=== PATIENT | female | born 1955 | race Caucasian/White ===

== ENCOUNTER → 2018-04-08 08:27 | Outpatient (CLI) | payer OTHER, SELFPAY ==
[2018-04-08 10:36] LABS: Erythrocyte Sedimentation Rate 0 mm/hr (0-30)
[2018-04-08 18:02] LABS: Uric Acid 5.9 mg/dL (2.6-7.2)
[2018-04-08 18:02] LABS: Magnesium 1.5 mg/dL (1.4-2.2)
[2018-04-09 13:49] LABS: Vitamin D 25 Hydroxy 34.9 ng/mL (30.0-100.0)
[2018-04-09 13:51] LABS: Vitamin B12 312 pg/mL (232-1245)
[2018-04-09 13:52] LABS: RA Latex Turbid. 11.8 IU/mL (0.0-13.9)
[2018-04-09 17:25] LABS: Antinuclear Antibodies, IFA Negative (.)
== END ==
PROVIDERS: Visit Provider Physician Assistant
DX: M25.50 Pain in unspecified joint (principal); R53.83 Other fatigue; Z13.220 Encounter for screening for lipoid disorders
CPT/HCPCS: 82607; 82652; 83735; 84550; 85651; 86038; 86431

== ENCOUNTER → 2018-05-12 08:31 | Outpatient (CLI) | payer OTHER, SELFPAY ==
--- NOTE | 2018-05-12 08:33 | CA_ITS ---
PROCEDURE: 2-D M-mode and color Doppler study INDICATIONS FOR THE TEST: Chest pain COPD Heart Murmur+ Tobacco Smoking+ Palpitations Fatigue+ Syncope Edema+ Hypertension+Diabetes Mellitus Rheumatic Fever SOB MONTOYA+Obesity+Hyperlipidemia Family History HD+ Additional History Pulmonary HTN, Hx of AFib, Hx of ablation and cardioversion, dizziness PATIENT INFORMATION HEIGHT: 65 WEIGHT: 252 GENDER: Female B/P: 137/87 2-D/M-MODE INTERPRETATION: 2-D MEASUREMENTS OBSERVED VALUES IN CMS Right Ventricular Dimension (RVDd) 2.6 Interventricular Septum (Thickness)(IVsd) 1.0 Left Ventricular Internal Dimensions(LVIDd) 4.3 Left Ventricular Posterior Wall (Thickness)(LVPWd) 1.0 Aortic Root 2.2 Aortic Cusp Separation 2.0 Left Atrial Dimensions (LAD) 4.0 2D 1. Left atrium is mildly enlarged, left ventricle is normal size, there is no concentric left ventricular hypertrophy, visually estimated ejection fraction 55% with no obvious regional wall motion abnormality. 2. The right atrium and right ventricle are normal size and contractility. 3. The aortic valve is minimally thickened and fibrosed. 4. The mitral and tricuspid valve leaflets are minimally thickened. 5. The pulmonic valve is poorly visualized. 6. No significant pericardial effusion noted. DOPPLER INTERROGATION: Doppler interrogation of the aortic, mitral and tricuspid valvular presence of moderate mitral and mild tricuspid regurgitation, calculated right ventricular systolic pressure is 44 mmHg consistent with moderate pulmonary hypertension. CONCLUSION: 1. Mildly enlarged left atrium, normal left ventricular size, visually 55% with no obvious regional wall motion abnormality, diastolic parameters are inconclusive. 2. Moderate mitral and mild tricuspid regurgitation, calculated right ventricular systolic pressure is 44 mmHg consistent with moderate pulmonary hypertension. 3. No significant pericardial effusion noted.
== END ==
PROVIDERS: Family Provider Family Medicine; PCP Family Medicine; Visit Provider Internal Medicine
DX: R06.09 Other forms of dyspnea (principal); I34.0 Nonrheumatic mitral (valve) insufficiency; I48.91 Unspecified atrial fibrillation; I27.20 Pulmonary hypertension, unspecified; I11.9 Hypertensive heart disease without heart failure; I07.1 Rheumatic tricuspid insufficiency; E03.8 Other specified hypothyroidism; F17.200 Nicotine dependence, unspecified, uncomplicated
CPT/HCPCS: 93306

== ENCOUNTER → 2018-08-06 08:14 | Outpatient (CLI) | payer OTHER, SELFPAY ==
--- NOTE | 2018-08-06 08:16 | MM_ITS ---
MM Dig screening mamm BI w/CAD ORDERING PHYSICIAN : rBandon Jimenez MD PATIENT AGE: 62 years GENDER: Female COMPARISON: June 2017, May 2016, January INDICATION: ITS.REASON: SCREENING no hormones no new complaints. Previous stereotactic biopsy left breast. Noncontributory family history. TECHNIQUE: Standard CC and MLO images were obtained. R2 CAD reviewed. FINDINGS: Heterogeneous breast. Prominent asymmetry. RIGHT BREAST: No significant new findings. Asymmetric Heterogeneous pattern appears stable on right LEFT BREAST:No significant new findings Minimal focal areas of density/nodularity scattered throughout the left breast appear stable compared back to 2012 and 2009. There are also scattered overall benign-appearing calcifications throughout the left breast which have not changed significantly since last year's study. There is been a previous stereotactic biopsy of some of the calcifications at the inferior central left breast as well with metallic clip marker at the site IMPRESSION: No significant interval change. Stable asymmetry . stable scattered densities & benign appearing calcifications throughout the Left Breast with no significant vs prior studies. Bilateral follow-up in one year recommended and should be encouraged BI-RADS Category: 2 Benign Finding(s) RECOMMENDED FOLLOW-UP: 1YR 1 YEAR FOLLOW-UP (A letter has been sent to the patient regarding results of the study.)
== END ==
PROVIDERS: Family Provider Family Medicine; PCP Family Medicine; Visit Provider Family Medicine
DX: Z12.31 Encounter for screening mammogram for malignant neoplasm of breast (principal)
CPT/HCPCS: 77067

== ENCOUNTER 2019-01-01 11:38 | Observation (INO) ==
[2019-01-01 12:09] LABS: Basophils % 0.4 % (0.1-2.0); Eosinophils # 0.1 K/mm3 (0.0-0.4); Eosinophils % 0.8 % (0.1-12.0); Hematocrit 43.8 % (37.0-47.0); Hemoglobin 14.6 g/dL (12.2-16.2); Lymphocytes # 2.3 K/mm3 (0.7-4.5); Lymphocytes % 24.1 % (10-50); Mean Corpuscular HGB Conc 33.4 g/dL (31.8-35.4); Mean Corpuscular Hemoglobin 31.1 pg (27.0-31.2); Mean Corpuscular Volume 93.2 fl (81-99); Mean Platelet Volume 7.7 fl (7.4-10.4); Monocytes # 0.6 K/mm3 (0.1-1.0); Monocytes % 6.5 % (1.7-9.3); Neutrophils # 6.4 K/mm3 (1.8-7.8); Neutrophils % 68.1 % (37.0-80.0); Platelet Count 295 K/mm3 (142-424); Red Blood Count 4.69 M/mm3 (4.20-5.40); Red Cell Distribution Width 13.6 % (11.5-17.5); White Blood Count 9.4 K/mm3 (4.8-10.8)
--- NOTE | 2019-01-01 12:12 | Emergency Department Note ---
ED Disposition Clinical Impression: Pre-syncope, Paroxysmal A-fib, Anticoagulant long-term use, Tobacco use disorder, Caffeine dependence Disposition: Still a Patient Condition on Discharge: Fair Referrals: Brandon Jimenez MD [Primary Care Provider] - - Critical Care Critical Care Time: No Attestation: On 01/01/19, the high probability of a clinically significant, sudden or life threatening deterioration of the following system(s) required my full and direct attention, intervention and personal management. The time I documented below is in addition to time spent performing reported procedures but includes the following listed in this critical care notation. Medical Decision Making - Medical Records Medical records reviewed: Yes: I reviewed the patient's medical records. - Dileep Inquiry Pt receiving controlled substance: No Dileep was queried for this patient: No Vital Signs: 01/01/19 11:42 Temperature 98.3 F Temperature Source Oral Pulse Rate [Right Radial] 100 H Respiratory Rate 18 Blood Pressure [Right Arm] 149/65 H Blood Pressure Mean [Right Arm] 93 Blood Pressure Source [Right Arm] Automatic Cuff Blood Pressure Position [Right Arm] Sitting 02 Sat by Pulse Oximetry 95 Oxygen Delivery Method Room Air Orders (Tests/Meds): ED MEDICATIONS Generic Name Dose Route Start Last Admin Trade Name Freq PRN Reason Stop Dose Admin Sodium Chloride 10 ml 01/01/19 11:55 Saline Flush 10ml Syringe IV 01/31/19 11:54 NEEDED PRN Maintain IV Site ORDERS Category Date Time Status CT head/brain wo con Stat Cat Scan 01/01/19 12:07 Ordered Chest XR 2 view (NOT portable) [XR chest 2V] Stat Exams 01/01/19 11:55 Ordered Basic Metabolic Panel Stat Lab 01/01/19 11:50 Received Complete Blood Count Auto Diff Stat Lab 01/01/19 11:50 Received Free T4 (Free Thyroxine) Stat Lab 01/01/19 11:50 Received Liver Panel Stat Lab 01/01/19 12:07 Ordered Magnesium Stat Lab 01/01/19 12:07 Ordered PT/PTT Stat Lab 01/01/19 12:07 Ordered TSH [Thyroid Stimulating Hormone] Stat Lab 01/01/19 11:50 Received Troponin I Stat Lab 01/01/19 11:50 Received - Radiology Data #1 Image(s): Chest Image Reviewed: Yes I reviewed the patient's radiology image Preliminary Findings: Normal/NAD IMPRESSION: Borderline cardiomegaly otherwise negative - CT Data CT Scan: Head Time Received: 12:[address] Reviewed: Yes: I have viewed the radiologist's interpretation Preliminary Findings: Normal/NAD Findings Narrative: IMPRESSION: Negative CT head without contrast. No acute finding - ECG Data Tracing #1 Sinus tachycardia 101/min no acute findings. ECG initial impression date: 01/01/19 ECG initial impression time: 11:50 Medical Decision Narrative: Patient gradually started feeling better with no additional symptoms but not back to her baseline. I discussed with her admission for observation she was agreeable. I called Dr. Escalante is on-call for Dr. Jimenez. General Adult HPI - General Chief complaint: Dizziness Stated complaint: palpatations Time Seen by Provider: 01/01/19 12:00 Mode of Arrival: Ambulatory Limitations: No Limitations Description of Symptoms (Recalled from ER Triage Doc. by RN): pt reports that approx 1100 today when she was getting out of the shower she began to feeling like her heart was beating very fast, states she felt dizzy states she felt like her L leg was "buckling" under her, pt reports she felt SOA at that time. Pt report since then she has just been feeling shaky and weak, pt reports her heart still feels like it is beating fast. Pt denies chest pain - History of Present Illness HPI narrative: 63 years old white female with smoker and coffee drinker with past medical history of hypertension paroxysmal atrial fibrillations and mitral valve prolapse on this alert to for anticoagulation. She did have 2 ablations 1 3 years ago and the last one was [address] Randall in [facility]. Today she woke up had 2 cups of coffee at 8 AM, took her morning medications Toprol 100 XL and Lopressor 25 mg and proceeded to have a shower that is when she had a sudden onset palpitations, shortness of breath, dizziness, weakness and felt like her left leg was giving away. The palpitation is regular and has improved but she continues to feel dizzy and weak. She denies recreational drug use. Onset (ago): hour(s) (Started at 11 AM this morning.) Location: head, lower extremity Radiation: non-radiation Consistency: constant Relieving factors: none Exacerbating factors: none Associated symptoms: malaise, shortness of breath, weakness - Related Data Home Medications Medication Instructions Recorded Confirmed levothyroxine 25 mcg tablet 100 mcg PO DAILY tab 04/27/18 11/01/18 losartan 50 mg tablet 50 mg PO DAILY tab 04/27/18 11/01/18 omeprazole 20 mg capsule,delayed 20 mg PO DAILY cap 04/27/18 11/01/18 release rivaroxaban 20 mg tablet 20 mg PO QPM 04/27/18 11/01/18 ropinirole 2 mg tablet 2 mg PO TID 04/27/18 11/01/18 trazodone 50 mg tablet 50 mg PO DAILY tab 04/27/18 11/01/18 duloxetine 20 mg capsule,delayed 60 mg PO DAILY cap 04/28/18 11/01/18 release Spironolactone [Aldactone 50mg Tab] 50 mg PO DAILY 09/29/18 11/01/18 metoprolol tartrate 100 mg tablet 100 mg PO BID tab 10/27/18 11/01/18 Metoprolol Tartrate [Lopressor 50 mg PO BID 01/01/19 01/01/19 25mg tablet] Potassium Chloride [Klor-Con 10mEq 10 meq PO BID 01/01/19 01/01/19 tab] Previous Rx's Medication Instructions Recorded hydrochlorothiazide 25 mg tablet 25 mg PO QAM #30 tab 11/08/18 Allergies Allergy/AdvReac Type Severity Reaction Status Date / Time No Known Allergies Allergy Verified 11/01/18 09:42 [facility] History - Hepatitis A Screen Drug use history?: No High risk sexual behaviors?: No History of sexually transmitted infection?: No Currently employed?: No Childcare worker?: No Do you have indoor plumbing?: Yes Do you have electricity?: Yes Attestation statement:: This patient has been screened for Hepatitis A risk factors. I have reviewed the patient's past medical history: Yes Medical History: Reports:: Atrial Fibrillation, Depression, Gastroesophageal Reflux Disease(GERD), Heart Murmur, Hypertension, Lung Disease Denies:: Diabetes Mellitus Type 1, Diabetes Mellitus Type 2 (pre diabetes), Internal Pacemaker Other Medical History: Reports: Hypothyroidism Laterality Cases: Left: Breast Biopsy, Bilateral: Tonsillectomy Other Surgeries: Yes: Cardiac Catheterization, Other. No: Pacemaker Comment: cardiac ablation - Social History Smoking Status: Current every day smoker # Packs/Day (cigarettes): 1 #Yrs smoked (if former smoker): 40 Alcohol Intake: current Alcohol Intake Frequency:: holidays/special occasions only Substance Use Type: denies use Occupational Status: employed Housing: house Household Members: none - Psychiatric History Expresses thoughts of harming self/others: None Suicide Plan Description: No Plan Pschychiatric History:: Reports:: Depression Family Hx:: Coronary Artery Disease, Hypertension, Heart Attack ROS Obtained: Yes All systems reviewed & no additional complaints Physical Exam - General General appearance: alert, in no apparent distress - Head Head exam: atraumatic, normocephalic, normal inspection - Eye Eye exam: Present: normal appearance, PERRL, EOMI. Absent: scleral icterus, nystagmus - ENT ENT exam: Present: normal exam, normal oropharynx, mucous membranes moist, TM's normal bilaterally, normal external ear exam - Neck Neck exam: Present: normal inspection, full ROM, trachea midline. Absent: meningismus, lymphadenopathy - Chest Chest inspection: Present: normal inspection, symmetric chest wall rise. Absent: tenderness - Respiratory Respiratory exam: Present: normal lung sounds bilaterally. Absent: respiratory distress, wheezes - Cardiovascular Cardiovascular exam: Present: regular rate, normal rhythm, normal heart sounds. Absent: JVD - Abdominal Exam Abdominal exam: Present: soft, normal bowel sounds. Absent: distention, tenderness, guarding, rebound, rigidity - Extremities Exam Extremities exam: Present: normal inspection, full ROM, normal capillary refill. Absent: calf tenderness - Back Exam Back exam: Present: normal inspection. Absent: tenderness - Neurological Exam Neurological exam: Present: alert, oriented X3, CN II-XII intact, motor sensory deficit, reflexes normal - Psychiatric Psychiatric exam: Present: normal affect, normal mood - Skin Skin exam: Present: warm, dry, intact, normal color - Lymphatic Lymphatic Findings: no adenopathy
[2019-01-01 12:27] LABS: Activated Partial Thrombo Time 33.2 seconds (23.6-34.0); Anion Gap 11.1 mEq/L (5-15); Blood Urea Nitrogen 17 mg/dL (7-18); Calcium 8.9 mg/dL (8.5-10.1); Carbon Dioxide 30 mmol/L (21.0-32.0); Chloride 103 mmol/L (98-107); Free T4 (Free Thyroxine) 1.34 ng/dl (0.76-1.46); Glucose 98 mg/dL (74-106); INR 1.11 (0.9-1.1); Potassium 4.1 mmoL/L (3.5-5.1); Prothrombin Time 11.4 seconds (9.4-11.8); Sodium 140 mmol/L (136-145); Thyroid Stimulating Hormone 1.38 uIU/ml (0.358-3.740)
[2019-01-01 12:28] LABS: Albumin Level 3.4 gm/dL (3.4-5.0); Bilirubin,Direct 0.1 mg/dL (0.0-0.2); Bilirubin,Indirect 0.3 mg/dL (0.0-0.9); Bilirubin,Total 0.4 mg/dL (0.2-1.0)
--- NOTE | 2019-01-02 08:35 | H&P/Discharge Summary ---
General - General Admission date:: 01/01/19 Discharge date: 01/02/19 *Chief complaint: weakness *History of present illness: Hilda is a 63-year-old white female with a history of atrial fibrillation, status post previous ablation procedure x2 now maintained in sinus rhythm with metoprolol. She also has a history of hypertension, hypothyroidism and GE reflux. She states that she has been noticing for a while some episodes of lightheadedness when she stands up. She had one of these episodes while getting out of the shower yesterday morning but this time she felt like her left leg was going to buckle. This was concerning to her for a stroke, therefore she presented to the emergency room. She has felt some irregularity to her heartbeat but no rapid, pounding sensations as she had noted with her episodes of atrial fib in the past. She was evaluated in the ER and her workup was fairly unremarkable but she was admitted for further observation and monitoring of her cardiac rhythm. [facility] History Medical History: Reports:: Atrial Fibrillation, Depression, Gastroesophageal Reflux Disease(GERD), Heart Murmur, Hypertension, Lung Disease Denies:: Diabetes Mellitus Type 1, Diabetes Mellitus Type 2 (pre diabetes), Internal Pacemaker Have you ever received a pneumonia vaccine?: Yes Have you received a flu vaccine this season?: Yes Other Medical History: Reports: Hypothyroidism Laterality Cases: Left: Breast Biopsy, Bilateral: Tonsillectomy Other Surgeries: Yes: Cardiac Catheterization, Other (cardiac ablation). No: Pacemaker - *Social History Educational Level: Completed High School Smoking Status: Current every day smoker Tobacco Type: cigarettes # Packs/Day (cigarettes): 1 #Yrs smoked (if former smoker): 40 Alcohol Intake: never Alcohol Intake Frequency:: holidays/special occasions only Substance Use Type: denies use Occupational Status: employed Housing: house Household Members: none Travel in the last 8 weeks: None - Psychiatric History Expresses thoughts of harming self/others: None Suicide Plan Description: No Plan Pschychiatric History:: Reports:: Depression *Family Hx:: Coronary Artery Disease, Hypertension, Heart Attack Review of Systems - Constitutional Reports weight gain, Denies headache(s) - Eyes Denies blurry vision, Denies double vision - ENT Reports dizziness, Denies ear pain, Denies hearing loss, Denies hoarseness, Denies neck pain - *Cardiovascular Reports irregular heart rhythm, Denies chest pain, Denies shortness of breath when lying down, Denies rapid, pounding, or irregular heartbeat, Denies fast heart rate - *Respiratory Reports shortness of breath with activity, Denies chest congestion - *Gastrointestinal Denies abdominal pain, Denies change in bowel habits, Denies heartburn - *Genitourinary Denies abnormal vaginal bleeding - *Musculoskeletal Denies joint swelling, Denies muscle weakness - Integumentary/Breasts Denies hair loss, Denies yellowing of the skin - *Neurologic Reports weakness (left leg) - Psychiatric Denies abnormal sleep pattern, Denies anxiety, Denies mood swings - Endocrine Denies cold intolerance, Denies heat intolerance - Hematologic/Lymphatic Denies easy bruising - Allergic/Immunologic Denies itchy eyes, Denies throat swelling Exam Vital signs and Labs for Last 24 Hours: Temp Pulse Resp BP Pulse Ox 97.9 F 95 H 18 133/69 95 01/02/19 07:57 01/02/19 07:57 01/02/19 07:57 01/02/19 07:57 01/02/19 07:57 Laboratory Results - last 24 hr 01/01/19 11:50: WBC 9.4, RBC 4.69, Hgb 14.6, Hct 43.8, MCV 93.2, MCH 31.1, MCHC 33.4, RDW 13.6, Plt Count 295, MPV 7.7, Neut % (Auto) 68.1, Lymph % (Auto) 24.1, [place] % (Auto) 6.5, Eos % (Auto) 0.8, Baso % (Auto) 0.4, Neut # (Auto) 6.4, Lymph # (Auto) 2.3, [place] # (Auto) 0.6, Eos # (Auto) 0.1, Baso # (Auto) 0.0 01/01/19 11:50: Sodium 140, Potassium 4.1, Chloride 103, Carbon Dioxide 30, Anion Gap 11.1, BUN 17, Creatinine 0.94, Estimated Creat Clear 51, Estimated GFR 60, Est GFR ( Amer) 73, Glucose 98, Calcium 8.9, Troponin I < 0.02, TSH 1.38 D, Free T4 1.34 01/01/19 11:50: PT 11.4, INR 1.11 H, APTT 33.2 01/01/19 11:50: Magnesium 1.5, Total Bilirubin 0.4, Direct Bilirubin 0.1, Indirect Bilirubin 0.3, AST 13 L, ALT 22, Alkaline Phosphatase 96, Total Protein 7.0, Albumin 3.4 01/01/19 16:20: Troponin I < 0.02 01/01/19 22:05: Troponin I < 0.02 I & O for Last 24 hours: Intake & Output 12/30/18 12/31/18 01/01/19 01/02/19 11:59 11:59 11:59 11:59 Intake Total 840 / 840 Balance 840 / 840 Weight 250 lb 261 lb 2 oz Narrative: She is sitting up in the chair and appears in no acute distress. She is alert and oriented to person, place, and time. Color is normal. HEENT within normal limits. Neck is supple with no masses, thyromegaly, or bruits. Lungs are clear to auscultation. Heart is regular with no murmurs. Abdomen is soft and nondistended with no unusual masses or tenderness. Lower extremities show no edema. Hospital Course Hospital Course: She was admitted overnight for observation and cardiac monitoring. She has remained in normal sinus rhythm. She initially refused to take her evening dose of metoprolol last night as she was concerned this was causing some of her symptoms of lightheadedness. She did agree to take 50 mg. Her blood pressure was slightly low last night. No chest pain. She rested well through the night. She has been up and about the room this morning with no dizziness. She is felt to be stable for discharge. I have advised that she monitor her blood pressure and heart rate closely at home. She may be having some orthostasis rather than dysrhythmia which may require adjusting her losartan. Results Labs on day of discharge: Labs from last 24 hours 01/01/19 01/01/19 01/01/19 22:05 16:20 11:50 WBC RBC Hgb Hct MCV MCH MCHC RDW Plt Count MPV Neut % (Auto) Lymph % (Auto) [place] % (Auto) Eos % (Auto) Baso % (Auto) Neut # (Auto) Lymph # (Auto) [place] # (Auto) Eos # (Auto) Baso # (Auto) PT INR APTT Sodium Potassium Chloride Carbon Dioxide Anion Gap BUN Creatinine Estimated Creat Clear Estimated GFR Est GFR ( Amer) Glucose Calcium Magnesium 1.5 Total Bilirubin 0.4 Direct Bilirubin 0.1 Indirect Bilirubin 0.3 AST 13 L ALT 22 Alkaline Phosphatase 96 Troponin I < 0.02 < 0.02 Total Protein 7.0 Albumin 3.4 TSH Free T4 01/01/19 01/01/19 01/01/19 11:50 11:50 11:50 WBC 9.4 RBC 4.69 Hgb 14.6 Hct 43.8 MCV 93.2 MCH 31.1 MCHC 33.4 RDW 13.6 Plt Count 295 MPV 7.7 Neut % (Auto) 68.1 Lymph % (Auto) 24.1 [place] % (Auto) 6.5 Eos % (Auto) 0.8 Baso % (Auto) 0.4 Neut # (Auto) 6.4 Lymph # (Auto) 2.3 [place] # (Auto) 0.6 Eos # (Auto) 0.1 Baso # (Auto) 0.0 PT 11.4 INR 1.11 H APTT 33.2 Sodium 140 Potassium 4.1 Chloride 103 Carbon Dioxide 30 Anion Gap 11.1 BUN 17 Creatinine 0.94 Estimated Creat Clear 51 Estimated GFR 60 Est GFR ( Amer) 73 Glucose 98 Calcium 8.9 Magnesium Total Bilirubin Direct Bilirubin Indirect Bilirubin AST ALT Alkaline Phosphatase Troponin I < 0.02 Total Protein Albumin TSH 1.38 D Free T4 1.34 DS: Diagnosis - Discharge Diagnosis (1) Orthostasis Status: Acute (2) Left leg weakness Status: Acute (3) Hypertension Status: Acute (4) History of atrial fibrillation Status: Acute (5) Tobacco dependence syndrome Status: Acute (6) Hypothyroidism Status: Chronic Discharge Medications - Medications for Discharge Home Medication List at Discharge: Continue losartan 50 mg tablet 50 mg PO DAILY tab omeprazole 20 mg capsule,delayed release 20 mg PO DAILY cap rivaroxaban 20 mg tablet 20 mg PO QPMWM metoprolol tartrate 100 mg tablet 100 mg PO BID tab ropinirole 2 mg tablet 2 mg PO HS Spironolactone [Aldactone 50mg Tab] 50 mg PO DAILY Potassium Chloride [Klor-Con 10mEq tab] 10 meq PO BID Metoprolol Tartrate [Lopressor 25mg tablet] 25 mg PO BID Duloxetine HCl [Cymbalta] 60 mg PO DAILY Trazodone HCl 50 mg PO HS hydroCHLOROthiazide [HCTZ 25mg tab] 25 mg PO DAILY Levothyroxine Sodium [Levothyroxine 100mcg (0.1MG) Tab] 100 mg PO DAILY Duloxetine HCl [Cymbalta 30mg capsule] 30 mg PO DAILY Disposition Disposition: Home, Self-Care
== END 2019-01-02 09:22 | disposition home or self-care (01) ==
LOC: ER 11:38 → 2ND 11:38
PROVIDERS: ADMIT Family Medicine; ATTEND Family Medicine
CPT/HCPCS: 36415; 70450; 71020; 71046; 80048; 80076; 83735; 84439; 84443; 84484; 85025; 85610; 85730; 93005; 96365; 99284; G0378

== ENCOUNTER → 2019-01-13 09:15 | Outpatient (CLI) | payer OTHER, SELFPAY ==
--- NOTE | 2019-01-13 09:20 | XR_ITS ---
XR DEXA axial skeleton HISTORY: ITS.REASON: POSTMENOPAUSAL ORDERING PHYSICIAN: Fatoumata Thompson MD PATIENT AGE: 63 years COMPARISON: None FINDINGS: The BMD measured at the Right femoral neck is 0.848 g/cm squared with a T score of -1.4. This is considered Osteopenic according to the World Health Organization criteria. Fracture risk is Moderate. Treatment is advised. The L1 L4 density has a T score of 1.6 which is within normal limits. IMPRESSION: Osteopenia with moderate fracture risk. Treatment is advised. Suggest follow-up exam December 2020
== END ==
PROVIDERS: PCP Family Medicine; Visit Provider Family Medicine
DX: Z78.0 Asymptomatic menopausal state (principal); Z13.820 Encounter for screening for osteoporosis
CPT/HCPCS: 77080

== ENCOUNTER → 2019-05-13 07:56 | Outpatient (CLI) | payer OTHER, SELFPAY ==
--- NOTE | 2019-05-13 07:58 | US_ITS ---
US abdomen limited History:Right upper quadrant pain Ordering Physician:ROSALBA Meza Patient Age: 63 years Comparison:None Findings: Pancreas:Unremarkable. No obvious mass or abnormal fluid collection. No ductal dilatation Liver:Unremarkable. No obvious mass or abnormal fluid collection. No ductal dilatation Right Kidney:Unremarkable. Normal size and echogenicity. No hydronephrosis Gallbladder:No gallstones, gallbladder wall thickening, pericholecystic fluid, or biliary dilatation. Impression:Negative gallbladder/right upper quadrant ultrasound
== END ==
PROVIDERS: PCP Family Medicine; Visit Provider Physician Assistant
DX: R10.11 Right upper quadrant pain (principal)
CPT/HCPCS: 76705

== ENCOUNTER → 2019-05-25 10:16 | Outpatient (CLI) | payer OTHER, SELFPAY ==
--- NOTE | 2019-05-25 10:19 | NM_ITS ---
NM hepatobiliary w pharm HISTORY: ITS.REASON: RUQ PAIN ORDERING PHYSICIAN: ROSALBA Meza PATIENT AGE: 63 years COMPARISON: 05/13/2019. DOSE: 8.02 mCi Choletec. FINDINGS: Homogeneous activity is present within the hepatic parenchyma. Activity is present in the gallbladder by 10 minutes.. Activity is present in the small bowel by 45 minutes.. The gallbladder ejection fraction is calculated to be 97% The patient did not report pain or other symptoms during CCK infusion. IMPRESSION: Normal ejection fraction. No evidence of cystic duct obstruction.
== END ==
PROVIDERS: PCP Family Medicine; Visit Provider Physician Assistant
DX: R10.11 Right upper quadrant pain (principal)
CPT/HCPCS: 78227; A9537; J2805

== ENCOUNTER → 2019-07-26 12:54 | Outpatient (CLI) | payer OTHER, SELFPAY ==
[2019-07-26 16:23] LABS: Ferritin 295 ng/mL (8-388)
== END ==
PROVIDERS: Visit Provider Nurse Practitioner Family
DX: E83.10 Disorder of iron metabolism, unspecified (principal); G25.81 Restless legs syndrome
CPT/HCPCS: 36415; 82728

== ENCOUNTER → 2019-08-18 19:59 | Outpatient (CLI) | payer OTHER, SELFPAY | PROVIDERS: PCP Family Medicine; Visit Provider Specialist | DX: G47.33 Obstructive sleep apnea (adult) (pediatric) (principal) | CPT/HCPCS: 95811 ==

== ENCOUNTER → 2019-09-02 08:17 | Outpatient (CLI) | payer OTHER, SELFPAY ==
--- NOTE | 2019-09-02 08:20 | MM_ITS ---
PROCEDURE: MM DIG SCREENING MAMM BI W/CAD CLINICAL INDICATION: SCREENING There is no personal or family history of breast cancer. There has been a previous biopsy left breast for benign disease. COMPARISON: [facility] DIG MAMM-SCREEN [facility] from 06/04/2016 [facility] DIG MAMM-SCREEN [facility] W/CAD from 07/16/2017 [facility] MM Dig screening mamm BI w/CAD from 08/06/2018 TECHNIQUE: Standard CC and MLO images were obtained. R2 CAD reviewed. FINDINGS: Moderate fibroglandular densities are seen in the central portions of both breasts. There are benign-appearing calcifications in each breast more numerous left than right. There is minimal post biopsy scarring deep to nipple left breast along with a biopsy clip. There are no suspicious microcalcifications. IMPRESSION: Moderate breast density with no suspicious lesions seen BI-RAD Category: 2 Benign Finding(s) FOLLOW-UP: 1YR 1 Year Follow-up (A letter has been sent to the patient regarding results of the study.) Dictated by: Dr. Chema Palomino MD 09/08/2019 13:[address] Chema Palomino MD in [place] 09/08/2019 13:09
== END ==
PROVIDERS: PCP Family Medicine; Visit Provider Family Medicine
DX: Z12.31 Encounter for screening mammogram for malignant neoplasm of breast (principal)
CPT/HCPCS: 77067

== ENCOUNTER → 2020-05-11 12:17 | Outpatient (CLI) | payer OTHER, SELFPAY ==
[2020-05-11 14:42] LABS: Hemoglobin A1C 5.2 % (4.0-6.0)
[2020-05-11 14:52] LABS: Chloride 103 mmol/L (98-107); Potassium 4.5 mmoL/L (3.5-5.1); Sodium 137 mmol/L (136-145)
[2020-05-11 14:54] LABS: Blood Urea Nitrogen 25 mg/dl (7-17); Estimated Glomerular Filt Rate 63 ml/min (>60); GFR (African American) 76 ML/MIN (>60)
[2020-05-11 14:55] LABS: Alanine Aminotransferase 15 U/L (12-78); Albumin/Globulin Ratio 1.4 (1.1-1.8); Alkaline Phosphatase 90 U/L (38-126); Anion Gap 10.5 mEq/L (5-15); Aspartate Amino Transferase 22 U/L (14-36); Bilirubin,Total 0.9 mg/dl (0.2-1.3); Carbon Dioxide 28 mmol/L (22.0-30.0); Chol/HDL Ratio 4.3 (1-3.5); Cholesterol 198 mg/dl (140-200); Globulin 2.8 g/dL (1.3-3.2); Glucose 92 mg/dl (74-100); HDL Cholesterol 46 mg/dl (40-60); Total Protein,Serum 6.8 g/dl (6.3-8.2); Triglycerides 90 mg/dl (30-150); VLDL Cholesterol 18 mg/dL (0-40)
[2020-05-11 15:09] LABS: Direct LDL Cholesterol 150.72 mg/dL (100-129)
[2020-05-11 15:12] LABS: Free T4 (Free Thyroxine) 1.95 ng/dl (0.78-2.19)
[2020-05-11 15:27] LABS: Thyroid Stimulating Hormone 0.81 uIU/mL (0.465-4.68)
== END ==
PROVIDERS: Visit Provider Physician Assistant
DX: R73.01 Impaired fasting glucose (principal); E03.9 Hypothyroidism, unspecified; I10 Essential (primary) hypertension; E55.9 Vitamin D deficiency, unspecified; Z13.220 Encounter for screening for lipoid disorders
CPT/HCPCS: 36415; 80053; 80061; 82306; 83036; 84439; 84443

== ENCOUNTER → 2020-06-06 14:09 | Outpatient (CLI) | payer OTHER, SELFPAY ==
--- NOTE | 2020-06-06 14:10 | CA_ITS ---
APPROVED REPORT EXAM: Comprehensive 2D, Doppler, and color-flow Echocardiogram Expense Analyst: Samira Pacheco RT(R) Ht: 5 ft 5 in Wt: 252lbs BSA: 2.18 BP: 125/71 mmHg Indications: Edema, bradycardia, PHTN, PAF, MR, HTN, MONTOYA, obesity M-Mode Dimensions RVDd 3.11 cm (0.9-2.6) LVDd 4.04 cm (3.5-5.7) LVDs 2.96 cm (3.5-5.7) IVSd 0.94 cm (0.6-1.1) PWd 1.48 cm (0.6-1.1) EF (Teich) 52.70% FS 26.70% EDV (Teich) 71.70 mL ESV (Teich) 33.90 mL Left Ventricle Left atrium is mildly enlarged, left ventricle is normal size, mild concentric left ventricular hypertrophy, visually estimated ejection fraction 55% with no regional wall motion abnormality. Diastolic parameters are inconclusive. Right Ventricle Right atrium and right ventricle mildly enlarged with normal contractility. Aortic Valve Aortic valve is minimally thickened and fibrosed, there is no aortic stenosis or aortic insufficiency. Mitral Valve Mitral valve is grossly normal, there is mild mitral regurgitation. Tricuspid Valve Tricuspid valve is grossly normal, there is mild tricuspid regurgitation, calculated right ventricular systolic pressure is 51 mmHg. Pulmonic Valve Pulmonic valve is poorly visualized. Great Vessels Aortic root is normal size. Pericardium No significant pericardial effusion noted. Conclusion 1. Biatrial enlargement, normal left ventricular size, mild concentric left ventricular hypertrophy, visually estimated ejection fraction 55% with no regional wall motion abnormality, diastolic parameters are inconclusive. 2. Mildly enlarged right ventricle with normal contractility. 3. Mild mitral and tricuspid regurgitation, calculated right ventricular systolic pressure is 51 mmHg. 4. No significant pericardial effusion noted. Electronically signed by : Doyle West, 06/07/2020 10:59:44
== END ==
PROVIDERS: PCP Family Medicine; Visit Provider Physician Assistant
DX: R60.9 Edema, unspecified (principal); I48.0 Paroxysmal atrial fibrillation; R00.1 Bradycardia, unspecified; E66.9 Obesity, unspecified; I11.9 Hypertensive heart disease without heart failure; I27.20 Pulmonary hypertension, unspecified; I34.0 Nonrheumatic mitral (valve) insufficiency; F17.200 Nicotine dependence, unspecified, uncomplicated
CPT/HCPCS: 93306

== ENCOUNTER → 2020-06-15 08:26 | Outpatient (CLI) | payer OTHER, SELFPAY ==
[2020-06-15 08:55] LABS: Basophils % 0.5 % (0.1-2.0); Eosinophils # 0.1 K/mm3 (0.0-0.4); Hematocrit 41.9 % (37.0-47.0); Hemoglobin 14.9 g/dL (12.2-16.2); Lymphocytes # 1.7 K/mm3 (0.7-4.5); Lymphocytes % 21.4 % (10-50); Mean Corpuscular HGB Conc 35.7 g/dL (31.8-35.4); Mean Corpuscular Hemoglobin 32.7 pg (27.0-31.2); Mean Corpuscular Volume 91.8 fl (81-99); Mean Platelet Volume 8.4 fl (7.4-10.4); Monocytes # 0.6 K/mm3 (0.1-1.0); Monocytes % 6.9 % (1.7-9.3); Neutrophils # 5.6 K/mm3 (1.8-7.8); Neutrophils % 70.1 % (37.0-80.0); Platelet Count 250 K/mm3 (142-424); Red Blood Count 4.56 M/mm3 (4.20-5.40); Red Cell Distribution Width 13.6 % (11.5-17.5); White Blood Count 7.9 K/mm3 (4.8-10.8)
[2020-06-15 14:06] LABS: Chloride 103 mmol/L (98-107); Sodium 139 mmol/L (136-145)
[2020-06-15 14:07] LABS: Potassium 4.1 mmoL/L (3.5-5.1)
[2020-06-15 14:09] LABS: Blood Urea Nitrogen 20 mg/dl (7-17); Estimated Glomerular Filt Rate 72 ml/min (>60); GFR (African American) 87 ML/MIN (>60)
[2020-06-15 14:10] LABS: Anion Gap 12.1 mEq/L (5-15); Carbon Dioxide 28 mmol/L (22.0-30.0); Glucose 116 mg/dl (74-100)
[2020-06-15 14:19] LABS: NT Pro Brain Natriuretic Pep. 163 pg/mL (0-125)
== END ==
PROVIDERS: Visit Provider Physician Assistant
DX: I27.20 Pulmonary hypertension, unspecified (principal); R00.1 Bradycardia, unspecified; R60.9 Edema, unspecified; E66.9 Obesity, unspecified; F17.200 Nicotine dependence, unspecified, uncomplicated; I48.0 Paroxysmal atrial fibrillation; I11.9 Hypertensive heart disease without heart failure; R06.09 Other forms of dyspnea
CPT/HCPCS: 36415; 80048; 83880; 85025

== ENCOUNTER → 2020-07-06 11:20 | Outpatient (CLI) | payer OTHER, SELFPAY | PROVIDERS: PCP Family Medicine; Visit Provider Internal Medicine Cardiovascular Disease | DX: R00.1 Bradycardia, unspecified (principal); I11.9 Hypertensive heart disease without heart failure; I10 Essential (primary) hypertension; I48.0 Paroxysmal atrial fibrillation; I34.0 Nonrheumatic mitral (valve) insufficiency; R60.9 Edema, unspecified; I27.20 Pulmonary hypertension, unspecified; I48.91 Unspecified atrial fibrillation; F17.200 Nicotine dependence, unspecified, uncomplicated | CPT/HCPCS: 93225 ==

== ENCOUNTER → 2020-07-16 14:52 | Outpatient (CLI) | payer OTHER, SELFPAY ==
[2020-07-16 16:30] LABS: Chloride 102 mmol/L (98-107); Sodium 140 mmol/L (136-145)
[2020-07-16 16:31] LABS: Potassium 4.2 mmoL/L (3.5-5.1)
[2020-07-16 16:33] LABS: Blood Urea Nitrogen 14 mg/dl (7-17); Estimated Glomerular Filt Rate 84 ml/min (>60); GFR (African American) 102 ML/MIN (>60)
[2020-07-16 16:34] LABS: Anion Gap 13.2 mEq/L (5-15); Calcium 9.3 mg/dl (8.4-10.2); Carbon Dioxide 29 mmol/L (22.0-30.0); Glucose 83 mg/dl (74-100)
== END ==
PROVIDERS: Visit Provider Internal Medicine Cardiovascular Disease
DX: I11.9 Hypertensive heart disease without heart failure (principal); E66.9 Obesity, unspecified; F17.200 Nicotine dependence, unspecified, uncomplicated; I27.20 Pulmonary hypertension, unspecified; I34.0 Nonrheumatic mitral (valve) insufficiency; I48.0 Paroxysmal atrial fibrillation; I48.91 Unspecified atrial fibrillation; R00.1 Bradycardia, unspecified; R60.9 Edema, unspecified
CPT/HCPCS: 36415; 80048

== ENCOUNTER → 2020-09-11 15:46 | Outpatient (CLI) | payer OTHER, SELFPAY ==
--- NOTE | 2020-09-11 15:48 | MM_ITS ---
PROCEDURE: MM DIG SCREENING MAMM BI W/CAD Digital Breast Tomosynthesis Included CLINICAL INDICATION: SCREENING There is no personal or family history of breast cancer. There has been previous biopsy left breast for benign disease. COMPARISON: MG DMSB DIG MAMM-SCREEN EVANS W/CAD from 07/16/2017 MG SCBI MM Dig screening mamm BI w/CAD from 08/06/2018 MG MM DIG SCREENING MAMM BI W/CAD from 09/02/2019 TECHNIQUE: Standard CC and MLO images and 3D Tomosynthesis was obtained. R2 CAD reviewed. FINDINGS: Mild to moderate scattered fibroglandular densities are seen in the central portions of both breasts. There is stable mild nodularity subareolar region left breast. There is a biopsy clip just deep to the nipple left breast. There is minimal stable post biopsy scarring deep to the nipple left breast. There is no new or suspicious lesion in either breast and no suspicious microcalcifications. IMPRESSION: Mild to moderate breast density with no suspicious lesions seen BI-RAD Category: 2 Benign Finding(s) FOLLOW-UP: 1YR 1 Year Follow-up (A letter has been sent to the patient regarding results of the study.) Dictated by: Dr. Chema Palomino MD 09/13/2020 16:13 Dr. Chema Palomino MD in [place] 09/13/2020 16:13
== END ==
PROVIDERS: PCP Family Medicine; Visit Provider Family Medicine
DX: Z12.31 Encounter for screening mammogram for malignant neoplasm of breast (principal)
CPT/HCPCS: 77063; 77067

== ENCOUNTER → 2020-10-08 10:53 | Outpatient (CLI) | payer OTHER, SELFPAY ==
[2020-10-08 11:47] LABS: Basophils % 0.7 % (0.1-2.0); Eosinophils % 0.4 % (0.1-12.0); Hematocrit 45.2 % (37.0-47.0); Hemoglobin 15.7 g/dL (12.2-16.2); Lymphocytes % 30.2 % (10-50); Mean Corpuscular HGB Conc 34.8 g/dL (31.8-35.4); Mean Corpuscular Hemoglobin 32.4 pg (27.0-31.2); Mean Corpuscular Volume 93.3 fl (81-99); Mean Platelet Volume 8.3 fl (7.4-10.4); Monocytes # 0.8 K/mm3 (0.1-1.0); Monocytes % 11.9 % (1.7-9.3); Neutrophils # 3.7 K/mm3 (1.8-7.8); Neutrophils % 56.8 % (37.0-80.0); Platelet Count 248 K/mm3 (142-424); Red Blood Count 4.84 M/mm3 (4.20-5.40); Red Cell Distribution Width 13.7 % (11.5-17.5); White Blood Count 6.6 K/mm3 (4.8-10.8)
== END ==
PROVIDERS: PCP Family Medicine; Visit Provider Nurse Practitioner
DX: Z20.828 Contact with and (suspected) exposure to other viral communicable diseases (principal); U07.1 COVID-19
CPT/HCPCS: 36415; 85025; 87275; 87276; U0003

== ENCOUNTER → 2021-06-10 09:28 | Outpatient (CLI) | payer OTHER, SELFPAY ==
[2021-06-10 10:22] LABS: Hemoglobin A1C 5.2 % (4.0-6.0)
[2021-06-10 10:35] LABS: Chloride 106 mmol/L (98-107); Potassium 4.3 mmoL/L (3.5-5.1); Sodium 139 mmol/L (136-145)
[2021-06-10 10:37] LABS: Alanine Aminotransferase 15 U/L (12-78); Alkaline Phosphatase 75 U/L (38-126); Aspartate Amino Transferase 18 U/L (14-36); Bilirubin,Total 0.7 mg/dl (0.2-1.3); Blood Urea Nitrogen 24 mg/dl (7-17); Estimated Glomerular Filt Rate 72 ml/min (>60); GFR (African American) 87 ML/MIN (>60)
[2021-06-10 10:38] LABS: Albumin Level 4.2 g/dl (3.5-5.0); Albumin/Globulin Ratio 1.5 (1.1-1.8); Anion Gap 11.3 mEq/L (5-15); Calcium 9.1 mg/dl (8.4-10.2); Carbon Dioxide 26 mmol/L (22.0-30.0); Cholesterol 186 mg/dl (140-200); Globulin 2.8 g/dL (1.3-3.2); Glucose 118 mg/dl (74-100); HDL Cholesterol 36 mg/dl (40-60); Triglycerides 73 mg/dl (30-150); VLDL Cholesterol 15 mg/dL (0-40)
[2021-06-10 10:39] LABS: Chol/HDL Ratio 5.2 (1-3.5)
[2021-06-10 10:51] LABS: Direct LDL Cholesterol 127.83 mg/dL (100-129)
[2021-06-10 10:53] LABS: 25-OH Vitamin D, Total 45.6 ng/mL (30-100)
[2021-06-10 10:59] LABS: Free T4 (Free Thyroxine) 1.78 ng/dl (0.78-2.19)
[2021-06-10 11:13] LABS: Thyroid Stimulating Hormone 0.89 uIU/mL (0.465-4.68)
== END ==
PROVIDERS: Visit Provider Physician Assistant
DX: E78.2 Mixed hyperlipidemia (principal); I10 Essential (primary) hypertension; E03.9 Hypothyroidism, unspecified; R73.01 Impaired fasting glucose; E55.9 Vitamin D deficiency, unspecified
CPT/HCPCS: 36415; 80053; 80061; 82306; 83036; 84439; 84443

== ENCOUNTER 2021-09-11 09:13 | Emergency (ER) | payer OTHER, SELFPAY ==
[2021-09-11 09:53] VITALS: BP 143/92; PULSE 94; RESP 20; TEMP 36.8; O2SAT 97; BMI 41.9
--- NOTE | 2021-09-11 10:18 | XR_ITS ---
PROCEDURE: XR CHEST 2V CLINICAL HISTORY: cough, congestion COMPARISON: CR CXR CHEST(2 VIEWS-NOT PORTABLE) from 06/23/2016 CR CXR CHEST(2 VIEWS-NOT PORTABLE) from 01/26/2017 CR CXR1 CHEST-PORTABLE from 06/17/2017 CR CXR2V XR chest 2V from 01/01/2019 FINDINGS: There is mild cardiomegaly without failure. Lungs are clear bilaterally. No acute bony findings. On the lateral view T7-T8 there is an opacity measuring approximately 2 cm and may be due to a paravertebral osteophyte. IMPRESSION: No change with no acute finding. Mild cardiomegaly Dictated by: Nasir Stephens MD 09/11/2021 11:09 Nasir Stephens MD in [place] 09/11/2021 11:09
--- NOTE | 2021-09-11 10:19 | HMH.EDUTC ---
[facility] [place] Disposition Clinical Impression: Acute bronchitis Qualifiers: Bronchitis organism: unspecified organism Qualified Code(s): J20.9 - Acute bronchitis, unspecified Disposition: Home, Self-Care Condition on Discharge: Good Instructions: Acute Bronchitis, DI for Acute Bronchitis, Preventing the Spread of Coronavirus Discharge Instructions Additional Instructions: Drink plenty of fluids. Take tylenol or ibuprofen for pain or fever. Take the medications as directed. Follow up with your regular doctor. GO TO THE ER FOR ANY WORSENING SYMPTOMS Quarantine until you know the results of your covid-19 test. If it is positive, the health department should call you and give you further instructions about your length of Quarantine and other things. Notify your school or workplace of your results and follow their instructions regarding return to work/school. The cough medication (promethazine dm) will make you drowsy, so don't drive or operate heavy machinery after taking it. You may already have the mucinex at home and you may not need the albuterol inhaler, but the prescription will be there if you do end up needing them. Prescriptions: Albuterol Sulfate [Albuterol Sulfate Hfa] 2 puffs IH Q6HP PRN 30 Days #1 each PRN Reason: Shortness Of Breath Transmission Status: Received by [facility] Promethazine/Dextromethorphan [Promethazine-Dm Syrup] 5 ml PO Q6HP PRN #240 ml PRN Reason: Cough Transmission Status: Received by [facility] methylPREDNISolone [Medrol] 4 mg PO DIRECTED 6 Days #21 packet Transmission Status: Received by [facility] guaiFENesin [Mucinex 600mg tablet] 1 - 2 tab PO BIDP PRN #30 tab PRN Reason: Congestion Transmission Status: Received by [facility] Azithromycin [Z-Frank 250mg Tab*] 250 mg PO UD DOSE PK #6 tab Transmission Status: Received by [facility] Referrals: Brandon Jimenez MD [Primary Care Provider] - Forms: Work/School Release Time of Disposition: 11:04 Medical Decision Making - Medical Records Medical records reviewed: No: I reviewed the patient's medical records. - Dileep Inquiry Pt receiving controlled substance: No Vital Signs: 09/11/21 09:53 09/11/21 11:15 Temperature 98.2 F 98.2 F Temperature Source Oral Pulse Rate 94 H Pulse Rate [Left] 94 H Respiratory Rate 20 20 Blood Pressure 143/92 H Blood Pressure [Right Arm] 143/92 H Blood Pressure Mean [Right Arm] 109 02 Sat by Pulse Oximetry 97 Orders (Tests/Meds): ED MEDICATIONS Discontinued Medications Generic Name Dose Route Start Last Admin Trade Name Geraldo PRN Reason Stop Dose Admin Ceftriaxone Sodium 1 gm 09/11/21 10:58 09/11/21 11:11 Ceftriaxone 1gm Vial IM 09/11/21 10:59 1 gm ONCE ONE Administration Lidocaine HCl 0 ml 09/11/21 10:58 09/11/21 11:11 Lidocaine 1% 5ml Pf Vial IM 09/11/21 10:59 2.5 ml ONCE ONE Administration [facility] [place] HPI - General Stated complaint: soa, congestion, cough Time Seen by Provider: 09/11/21 10:21 Mode of Arrival: Ambulatory Source of Information: Patient Limitations: No Limitations Description of Symptoms (Recalled from Triage Doc. by RN): pt c/o cough and congestion since . HEENT Symptoms (Recalled from RN notes): Yes (sinus congestion) Resp Symptoms (Recalled from RN notes): Yes (cough) Skin Symptoms (Recalled from RN notes): No MS Symptoms (Recalled from RN notes): No Functional Status (Recalled from RN notes): na - History of Present Illness Provider Complaint: She states that she has had chest congestion and a productive cough for the past 1 week. She has been wheezing, but she denies any shortness of breath. She has been fully vacinated against covid-19 and she denies any known covid-19 exposure. She denies any fever or chills. She does have a history of getting pneumonia. The last time was around 3 years ago. - Related Data Home Medications Medication Instruction
[2021-09-11 11:15] VITALS: BP 143/92; PULSE 94; RESP 20; TEMP 36.8
== END 2021-09-11 11:28 | disposition home or self-care (01) ==
PROVIDERS: Emergency Provider Nurse Practitioner Family; PCP Family Medicine
DX: J20.9 Acute bronchitis, unspecified (principal); K21.9 Gastro-esophageal reflux disease without esophagitis; E78.5 Hyperlipidemia, unspecified; I10 Essential (primary) hypertension; E03.9 Hypothyroidism, unspecified; I48.0 Paroxysmal atrial fibrillation; F17.210 Nicotine dependence, cigarettes, uncomplicated; F33.1 Major depressive disorder, recurrent, moderate; Z79.899 Other long term (current) drug therapy
CPT/HCPCS: 71046; 96372; 99202; C9803; G0463; U0003; U0005

== ENCOUNTER → 2021-09-17 07:43 | Outpatient (CLI) | payer OTHER, SELFPAY ==
--- NOTE | 2021-09-17 07:48 | CT_ITS ---
PROCEDURE: CT LUNG SCREENING CLINICAL INDICATION: H/O NICOTINE USE COMPARISON: CT ABDPELW/O CT ABD PELVIS W/O CONTRAST from 12/07/2015 CR XR CHEST 2V from 09/11/2021 MG MM DIG SCREENING MAMM BI W/CAD from 09/17/2021 TECHNIQUE: The exam was performed on a [employer] Speed [address] scanner using 2.90 mGy CTDI. A low dose helical CT CHEST was performed on a multi-detector scanner. All CT scans at the facility use one or more dose reduction, viz: automated exposure control, ma/kV adjustment per patient size (including targeted exams where dose is matched to indication, i.e. head), or iterative reconstruction technique. The LDCT was performed in a facility that meets the criteria for the screening program. Data regarding this exam was submitted to ACR which is an approved registry. The order for this exam indicates that it came as a result of a lung cancer screening counseling shard decision-making visit that included all the elements required of such a visit including smoking cessation. The radiologist interpreting this exam meets the CMS criteria for the LDCT lung cancer screening program. The exam is reported using the Lung-RADS classification scale and reported to the ACR registry. NOTE: This study was performed for the specific purposes of lung cancer screening and is not an alternative to diagnostic chest CT. RADIATION DOSE: CTDI vol(CT dose Index-volume) = 2.90mG DLP (Dose Length Product) = 107.33 mGcm FINDINGS: No suspicious pulmonary nodule apparent. There is some scarring present in the right upper lobe. No infiltrates or effusions. There is an azygos fissure present as a normal variant OTHER FINDINGS: Calcifications are present in the left breast. Please see mammogram report of the same day. Mildly enlarged right adrenal gland with fat density consistent with adenomatous involvement. There is a 12 mm blastic area in the L1 vertebral body anteriorly and on the right and could represent a bone island not significantly changed from 12/07/2015. IMPRESSION: Lung-RADS Category 1 Negative Follow-up: Continue annual screening with LDCT in 12 months Dictated by: Nasir Stephens MD 09/30/2021 11:15 Nasir Stephens MD in [place] 09/30/2021 11:15
--- NOTE | 2021-09-17 07:49 | MM_ITS ---
PROCEDURE INFORMATION: Exam: MG Bilateral Screening 3D Mammography Exam date and time: 09/17/2021 7:49 AM Age: 65 years old Clinical indication: Encounter for screening mammogram for malignant neoplasm of breast TECHNIQUE: Imaging protocol: Bilateral screening tomosynthesis and 2D mammography including computer-aided detection (CAD) when performed. COMPARISON: 1. MG MM DIG SCREENING MAMM BI W/CAD 09/11/2020 3:54 PM 2. MG MM DIG SCREENING MAMM BI W/CAD 09/02/2019 8:30 AM FINDINGS: MAMMOGRAPHY: Breast composition: The breast tissue is heterogeneously dense, which may obscure small masses. Mass: No suspicious masses. Architectural distortion: None. Calcifications: No suspicious calcifications. Asymmetric density: None. Skin thickening: None. Axillary adenopathy: None. IMPRESSION: No mammographic evidence of malignancy. Annual screening is recommended unless otherwise clinically indicated. ASSESSMENT: BI-RADS Category 1: Negative
== END ==
PROVIDERS: PCP Family Medicine; Visit Provider Physician Assistant
DX: Z12.31 Encounter for screening mammogram for malignant neoplasm of breast (principal); Z87.891 Personal history of nicotine dependence; Z12.2 Encounter for screening for malignant neoplasm of respiratory organs
CPT/HCPCS: 71271; 77063; 77067

== ENCOUNTER → 2021-12-10 11:25 | Outpatient (POV) | payer OTHER, SELFPAY | PROVIDERS: Visit Provider Dermatology | DX: Z00.00 Encounter for general adult medical examination without abnormal findings (principal) ==

== ENCOUNTER → 2022-09-23 07:14 | Outpatient (CLI) | payer MEDICARE, OTHER, SELFPAY ==
--- NOTE | 2022-09-23 07:20 | CT_ITS ---
FINAL REPORT TECHNIQUE: Axial images were obtained from the lung apex to the mid abdomen by computed tomography. This study was performed with techniques to keep radiation doses as low as reasonably achievable (ALARA). Individualized dose reduction techniques using automated exposure control or adjustment of mA and/or kV according to the patient's size were employed. CLINICAL HISTORY: H/O NICOTINE DEPENDENCE 1 pack per day x 40 years off and on FINDINGS: CHEST CT LOW DOSE CTDI vol (mGy): 2.90 DLP (mGy-cm): 106.81 There is no axillary adenopathy. There is no hilar or mediastinal adenopathy. The heart is normal in size. There is no pericardial or pleural effusion. Lung window images demonstrate no suspicious infiltrate or nodule. There is mild scarring in the right lung. Limited images of the upper abdomen are unremarkable. IMPRESSION: Lung RADS category 1. Recommend 12 month follow-up low-dose chest CT. Reviewed, Interpreted and Dictated by Augusto Sood III, MD Transcribed by Guillermina Torres Authenticated and [facility]
--- NOTE | 2022-09-23 07:21 | MM_ITS ---
PROCEDURE INFORMATION: Exam: MG Bilateral Screening 3D Mammography Exam date and time: 09/23/2022 7:53 AM Age: 66 years old Clinical indication: Screening examination. No family history of breast cancer. History of left stereotactic biopsy. TECHNIQUE: Imaging protocol: Bilateral Screening tomosynthesis and 2D mammography including computer-aided detection (CAD) when performed. COMPARISON: 1. MG MM DIG SCREENING MAMM BI W/CAD 09/17/2021 8:23 AM 2. MG MM DIG SCREENING MAMM BI W/CAD 09/11/2020 3:54 PM 3. MG MM DIG SCREENING MAMM BI W/CAD 09/02/2019 8:30 AM 4. MG SCBI MM Dig screening mamm BI w/CAD 08/06/2018 8:35 AM FINDINGS: MAMMOGRAPHY: Breast composition: The breasts are heterogeneously dense, which may obscure small masses. Mass: None. Architectural distortion: None. Calcifications: No suspicious calcifications. Asymmetric density: None. Skin thickening: None. Axillary adenopathy: None. Other: Stable segmental dilated ducts/nodules and coarse calcifications, with 2 related biopsy clips, in the left central and lower breast. IMPRESSION: No mammographic evidence of malignancy. Annual screening is recommended unless otherwise clinically indicated. ASSESSMENT: BI-RADS Category 2: Benign
== END ==
PROVIDERS: PCP Family Medicine; Visit Provider Family Medicine
DX: Z87.891 Personal history of nicotine dependence (principal); Z12.2 Encounter for screening for malignant neoplasm of respiratory organs; Z12.31 Encounter for screening mammogram for malignant neoplasm of breast
CPT/HCPCS: 71271; 77063; 77067

== ENCOUNTER 2022-10-02 10:34 | Emergency (ER) | payer MEDICARE, OTHER, SELFPAY ==
[2022-10-02 10:44] VITALS: BP 140/78; PULSE 70; RESP 18; TEMP 36.8; O2SAT 97; BMI 39.9
--- NOTE | 2022-10-02 11:00 | HMH.EDGENADL ---
Discharge Plan Disposition Patient Disposition: Home, Self-Care Condition: Good Prescriptions Prescriptions: No Action omeprazole 20 mg capsule,delayed release(DR/EC) 20 mg PO DAILY ropinirole [Requip] 2 mg tablet 2 mg PO HS losartan 25 mg tablet 50 mg PO DAILY venlafaxine 75 mg capsule,extended release 24hr 75 mg PO DAILY rivaroxaban [Xarelto] 20 mg tablet See Rx Instructions .ROUTE .COMPLEX Qty: 90 3RF Dose Instruction: TAKE ONE TABLET BY MOUTH EVERY DAY FOR BLOOD THINNER --TAKE WITH FOOD-- Rx Instructions: TAKE ONE TABLET BY MOUTH EVERY DAY FOR BLOOD THINNER --TAKE WITH FOOD-- metoprolol succinate 100 mg tablet extended release 24 hr 150 mg PO BID 90 Days Qty: 270 1RF spironolactone 50 mg tablet 50 mg PO DAILY Qty: 90 1RF hydrochlorothiazide 25 mg tablet See Rx Instructions .ROUTE .COMPLEX Qty: 90 1RF Dose Instruction: TAKE ONE TABLET BY MOUTH EVERY DAY FOR BLOOD PRESSURE Rx Instructions: TAKE ONE TABLET BY MOUTH EVERY DAY FOR BLOOD PRESSURE rosuvastatin [Crestor] 40 mg tablet 40 mg PO DAILY Qty: 90 3RF levothyroxine 100 MCG tablet 100 mg PO DAILY trazodone 50 MG tablet 50 mg PO HS potassium chloride 10 mEq tablet extended release 10 meq PO DAILY albuterol sulfate 8.5 GM HFA aerosol inhaler 2 puffs inhalation Q6HP PRN (Reason: Shortness Of Breath) 30 Days Qty: 1 5RF Referrals Follow up/Referrals: Brandon Jimenez MD [Primary Care Provider] - See instructions Activity Restrictions/Add. Instructions Additional Instructions/Restrictions: Follow-up with your primary care provider as soon as possible, call for appointment. Additional instructions for SEIZURE OR LOSS OF CONSCIOUSNESS/POSSIBLE SEIZURE: NO DRIVING, BIKE RIDING, SWIMMING, TUB BATHING, LADDERS UNTIL CLEARED BY DOCTOR. NO ALCOHOL OR STREET DRUGS. GET 8 HOURS OF SLEEP PER NIGHT. RETURN IF SEIZURE RECURS. Clinical Impressions Clinical Impression: Seizure-like activity Instructions Patient Instructions: DI for Seizure (Not Epilepsy/Seizure Disorder) Discharge ED Provider: Scott Collins General Adult HPI General Chief complaint: Seizure Stated complaint: possible seizure Time Seen by Provider: 10/02/22 10:53 Mode of Arrival: Wheelchair Source of Information: Patient Limitations: No Limitations Description of Symptoms (Recalled from ER Triage Doc. by RN): Patient reports she was sitting on the couch at home when she dozed off and felt her arms and legs shaking and thinks she may have had a seizure. Patient reports no hx of seizures. History of Present Illness HPI narrative: Patient says she thinks she might of had a seizure. She was sitting on the couch wide-awake watching TV. She says that suddenly she felt like she was out of it (like when my blood sugar goes low, although patient is not diabetic) and could feel her arms and legs jerking. She thinks she then lost consciousness, woke up and the iPad that she had been holding was on the floor and she was laying on the couch. She thinks the whole episode just lasted seconds. No tongue bites or incontinence. She does not have any history of seizures nor a family history of seizures. She says she has recently been ill with bronchitis for a week or 2. She has a cough and wheezing. No fever. No vomiting or diarrhea. She has had mild headaches for a couple of weeks, she says they have not been bad enough to even take anything for them. Her only recent medication change was to add Crestor about 5 weeks ago. She is a smoker. She drinks alcohol socially. No drug use. Related Data Home Medications Medication Instructions Recorded Confirmed omeprazole 20 mg capsule,delayed 20 mg PO DAILY GERD 04/27/18 08/22/22 release ropinirole 2 mg tablet (Requip) 2 mg PO HS RLS 04/27/18 08/22/22 levothyroxine 100 mcg tablet 100 mg PO DAILY THYROID 01/01/19 08/22/22 trazodone 50 mg tablet
[2022-10-02 11:01] VITALS: BP 129/84; PULSE 94; RESP 20; O2SAT 96
[2022-10-02 11:31] VITALS: BP 106/69; PULSE 92; RESP 20; O2SAT 96
--- NOTE | 2022-10-02 11:52 | CT_ITS ---
FINAL REPORT CLINICAL HISTORY: possible seizure FINDINGS: Axial images of the head were obtained without contrast. Coronal reformatted images were also obtained. This study was performed with techniques to keep radiation doses as low as reasonably achievable (ALARA). Individualized dose reduction techniques using automated exposure control or adjustment of mA and/or kV according to the patient's size were employed. There is generalized age appropriate atrophy. There is no evidence of intracranial hemorrhage or mass. The ventricular size is within normal limits. There is no evidence of shift of the midline structures. No skull abnormality is seen on the bone window image. IMPRESSION: No acute intracranial abnormality. Reviewed, Interpreted and Dictated by Augusto Sood III, MD Transcribed by Chica Ontiveros Authenticated and [facility]
--- NOTE | 2022-10-02 11:52 | XR_ITS ---
FINAL REPORT CLINICAL HISTORY: cough, syncopal episode vs seizure COMPARISON: 09/11/2021 FINDINGS: A single portable view of the chest was obtained. There is cardiomegaly. The mediastinum is within normal limits. No acute pulmonary abnormality is identified. The bony thorax is intact. IMPRESSION: No active cardiopulmonary disease. Reviewed, Interpreted and Dictated by Augusto Sood III, MD Transcribed by Chica Ontiveros Authenticated and [facility]
[2022-10-02 12:01] VITALS: BP 120/73; PULSE 90; O2SAT 96
--- NOTE | 2022-10-02 12:01 | ECG_ITS ---
APPROVED REPORT Exam: Resting ECG HR:93 bpm ECG Measurements Heart Rate 93 AXES MS 203 P 91 QRSd 91 QRS 27 QT 327 T 36 QTc 377 Conclusion SINUS RHYTHM NONSPECIFIC ST & T-WAVE ABNORMALITY BORDERLINE ECG UNCONFIRMED REPORT Electronically signed by : Carmelo Gatica MD 10/03/2022 13:28:55
[2022-10-02 12:17] VITALS: BP 126/93; PULSE 92; O2SAT 98
--- NOTE | 2022-10-02 12:20 | PC.NURSE ---
rounded on pts room and asked the pt if they needed anything and pt stated everything was good and there were no needs at this time
[2022-10-02 12:24] LABS: Coronavirus 19, PCR Not Detected (NotDetected); Influenza A, PCR Not Detected (NotDetected); Influenza B, PCR Not Detected (NotDetected); Microscopic, Urine URINE MICROSCOPIC (MICROSCOPIC)
[2022-10-02 12:28] LABS: Chloride 99 mmol/L (98-107); Potassium 4.3 mmoL/L (3.5-5.1); Sodium 139 mmol/L (136-145)
[2022-10-02 12:29] LABS: Basophils # 0.1 K/mm3 (0-0.2); Basophils % 0.8 % (0.1-2.0); Eosinophils # 0.2 K/mm3 (0.0-0.4); Eosinophils % 1.8 % (0.1-12.0); Hematocrit 46.5 % (37.0-47.0); Hemoglobin 15.6 g/dL (12.2-16.2); Lymphocytes # 2.2 K/mm3 (0.7-4.5); Lymphocytes % 17.9 % (10-50); Mean Corpuscular HGB Conc 33.5 g/dL (31.8-35.4); Mean Corpuscular Hemoglobin 32.4 pg (27.0-31.2); Mean Corpuscular Volume 96.9 fl (81-99); Mean Platelet Volume 8.5 fl (7.4-10.4); Monocytes # 0.8 K/mm3 (0.1-1.0); Monocytes % 6.1 % (1.7-9.3); Neutrophils % 73.4 % (37.0-80.0); Platelet Count 317 K/mm3 (142-424); Red Cell Distribution Width 13.4 % (11.5-17.5); White Blood Count 12.2 K/mm3 (4.8-10.8)
[2022-10-02 12:30] LABS: Alanine Aminotransferase 23 U/L (12-78); Appearance,Urine CLEAR (Clear); Aspartate Amino Transferase 26 U/L (14-36); Bilirubin,Urine Negative (Negative); Blood Urea Nitrogen 14 mg/dl (7-17); Blood, Urine 1+ (Negative); Color,Urine YELLOW (Yellow); Creatinine Clearance Estimated 94 mL/min (50-200); Estimated Glomerular Filt Rate 83 ml/min (>60); GFR (African American) 101 ML/MIN (>60); Glucose,Urine (UA) Negative (Negative); Ketones,Urine Negative (Negative); Leukocyte Esterase,Urine TRACE (Negative); Nitrate,Urine Negative (Negative); Protein,Urine Negative (Negative); Urobilinogen,Urine 0.2 EU/dl (0.2)
[2022-10-02 12:31] LABS: Albumin Level 4.1 g/dl (3.5-5.0); Albumin/Globulin Ratio 1.4 (1.1-1.8); Alkaline Phosphatase 126 U/L (38-126); Anion Gap 12.3 mEq/L (5-15); Bilirubin,Total 0.3 mg/dl (0.2-1.3); Calcium 9.4 mg/dl (8.4-10.2); Carbon Dioxide 32 mmol/L (22.0-30.0); Globulin 2.9 g/dL (1.3-3.2); Glucose 102 mg/dl (74-100)
[2022-10-02 12:42] LABS: Bacteria,Urine Trace /lpf; Squamous Epithelial Cell,Urine Occasional #/hpf (0-5); WBC,Urine Occasional #/hpf (0-3)
[2022-10-02 12:47] LABS: Troponin I < 0.01 ng/ml (0.00-0.034)
[2022-10-02 13:50] VITALS: BP 124/70; PULSE 90; RESP 20; TEMP 36.8
== END 2022-10-02 13:53 | disposition home or self-care (01) ==
PROVIDERS: Emergency Provider Emergency Medicine; PCP Family Medicine
DX: R56.9 Unspecified convulsions (principal); Z79.899 Other long term (current) drug therapy; E78.5 Hyperlipidemia, unspecified; R00.1 Bradycardia, unspecified; Z72.0 Tobacco use; I48.0 Paroxysmal atrial fibrillation; I10 Essential (primary) hypertension; E03.9 Hypothyroidism, unspecified; I34.0 Nonrheumatic mitral (valve) insufficiency
CPT/HCPCS: 70450; 71045; 80053; 81001; 84484; 85025; 93005; 99285; C9803; U0003; U0005

== ENCOUNTER → 2023-06-12 13:53 | Outpatient (CLI) | payer MEDICARE, OTHER, SELFPAY ==
--- NOTE | 2023-06-12 13:58 | XR_ITS ---
FINAL REPORT CLINICAL HISTORY: SOB, bilateral lower extremity edema FINDINGS: Two views of the chest were obtained. The heart size and pulmonary vascularity are within normal limits. The mediastinum is normal. No acute pulmonary abnormality is identified. There is no pneumothorax. The bony thorax is intact. IMPRESSION: No active cardiopulmonary disease. Reviewed, Interpreted and Dictated by Augusto Sood III, MD Transcribed by Carl Castro Authenticated and [facility]
[2023-06-12 15:19] LABS: Hemoglobin A1C 5.5 % (4.0-6.0)
[2023-06-12 15:24] LABS: Alanine Aminotransferase 36 U/L (12-78); Albumin Level 3.5 g/dl (3.5-5.0); Albumin/Globulin Ratio 1.4 (1.1-1.8); Alkaline Phosphatase 91 U/L (38-126); Aspartate Amino Transferase 25 U/L (14-36); Bilirubin,Total 0.7 mg/dl (0.2-1.3); Blood Urea Nitrogen 20 mg/dl (7-17); Calcium 9.1 mg/dl (8.4-10.2); Carbon Dioxide 28 mmol/L (22.0-30.0); Chloride 105 mmol/L (98-107); Chol/HDL Ratio 3.1 (1-3.5); Cholesterol 87 mg/dl (140-200); Estimated Glomerular Filt Rate 55 ml/min (>60); GFR (African American) 67 ML/MIN (>60); Globulin 2.5 g/dL (1.3-3.2); Glucose 103 mg/dl (74-100); HDL Cholesterol 28 mg/dl (40-60); Sodium 139 mmol/L (136-145); Triglycerides 122 mg/dl (30-150); VLDL Cholesterol 24 mg/dL (0-40)
[2023-06-12 15:35] LABS: Direct LDL Cholesterol 46.56 mg/dL (100-129)
[2023-06-12 15:39] LABS: Free T4 (Free Thyroxine) 1.97 ng/dl (0.78-2.19)
[2023-06-12 17:12] LABS: Thyroid Stimulating Hormone 0.36 uIU/mL (0.465-4.68)
[2023-06-12 17:33] LABS: NT Pro Brain Natriuretic Pep. 342 pg/mL (0-125)
== END ==
PROVIDERS: PCP Family Medicine; Visit Provider Physician Assistant
DX: R73.01 Impaired fasting glucose (principal); R06.02 Shortness of breath; E78.2 Mixed hyperlipidemia; E55.9 Vitamin D deficiency, unspecified; R60.0 Localized edema; E03.9 Hypothyroidism, unspecified
CPT/HCPCS: 36415; 71046; 80053; 80061; 82306; 83036; 83880; 84439; 84443

== ENCOUNTER → 2023-06-24 14:08 | Outpatient (CLI) | payer MEDICARE, OTHER, SELFPAY ==
--- NOTE | 2023-06-24 14:14 | CA_ITS ---
APPROVED REPORT EXAM: Comprehensive 2D, Doppler, and color-flow Echocardiogram Watch Crystal Grinder: MARCELINO Kamara, RVS Ht: 5 ft 5 in Wt: 261lbs BSA: 2.22 HR: 44 bpm BP: 121/84 mmHg Rhythm: Bradycardia Indications: Lethargy, Orthopnea, PHTN, Ex-smoker, HTN, Obesity, Edema, HLD Echo Enhancing Agent Comments: Technically difficult exam due to patient factors 2D Dimensions IVSd 0.89 cm F: 0.6-1.0 LVEF (Visual) 57.10 % PWd 0.79 cm F: 0.6 - 1.0 LA Volume 90.30 mL LVDd 5.08 cm F: 3.9 - 5.3 LA Volume Index 40.68 mL/m2 (M/F) 16-34 LVDs 3.55 cm F: 2.2 - 3.5 Aortic Root 3.13 cm F: 2.7 - 3.3 Left Atrium 5.12 cm F: 2.7 - 3.8 LVOT 2.40 cm (M/F) 1.5-2.5 M-Mode Dimensions RVDd 3.44 cm (0.9-2.6) LA Diam 4.89 cm (1.9-4.0) LVDd 4.90 cm (3.5-5.7) Ao Diam 3.54 cm (2.0-3.7) LVDs 3.44 cm (3.5-5.7) IVSd 1.04 cm (0.6-1.1) PWd 1.08 cm (0.6-1.1) EF (Teich) 51.30% FS 26.20% EDV (Teich) 100.30 mL TAPSE 2.94 (<1.7) ESV (Teich) 48.80 mL LV Diastology E Decel Time 137.00 (160-240 msec) E/A Ratio 2.58 MED E' 12.40 (< 7 cm/sec) MED A' 4.20 cm/s E'/MED E' Ratio 9.89 (>14) LAT E' 10.70 (<10 cm/sec) LAT A' 4.20 cm/s E/LAT E' Ratio 11.46 (>14) Aortic Valve LVOT Max 81.00 (70-110 cm/s) LVOT VTI 19.01 cm AoV Peak Phil. 102.00 (50-130 cm/s) AO Peak GR. 4.20 mmHg AO Mean GR. 2.10 (<5 mmHg) AO VTI 23.13 (18-25 cm) NIELS (VTI) 3.72 (2.5-4.5 cm2) Mitral Valve MV A Velocity 47.00 (40-130 cm/s) E/A Ratio 2.58 MV Decel. Time 137.00 (160-240 ms) Pulmonary Valve PV Peak Velocity 80.00 (50-150 cm/s) Tricuspid Valve TR P. Velocity 288.00 cm/s RAP Estimate 10.00 mmHg RVSP 43.20 mmHg Left Ventricle The left ventricle is normal size. The left ventricular systolic function is normal. The left ventricular ejection fraction is within the normal range. There is normal left ventricular wall thickness. There is normal LV segmental wall motion. The left ventricular diastolic function is normal. LVEF is 55%. Right Ventricle The right ventricle is normal size. The right ventricular systolic function is normal. Atria Left atrium is mildly dilated. Right atrium is mildly dilated. There is no Doppler evidence of interatrial shunt. Aortic Valve The aortic valve is normal in structure. There is no aortic valvular stenosis. No aortic regurgitation is present. Mitral Valve The mitral valve is normal in structure. Mild mitral regurgitation. Tricuspid Valve The tricuspid valve leaflets are thin and pliable. Moderate tricuspid regurgitation. RVSP = 35-40 mmHg Pulmonic Valve The pulmonary valve is normal in structure. Trace pulmonic regurgitation. Great Vessels The aortic root is normal in size. Pericardium There is no pericardial effusion. Conclusion Normal biventricular systolic function. Mild biatrial dilation. Moderate TR. Elevated RVSP=35-40 mmHg Electronically signed by : Kiesha Osorio, 06/24/2023 17:10:53
== END ==
PROVIDERS: PCP Family Medicine; Visit Provider Physician Assistant
DX: R06.02 Shortness of breath (principal); R06.01 Orthopnea
CPT/HCPCS: 93306

== ENCOUNTER → 2023-09-25 14:12 | Outpatient (CLI) | payer MEDICARE, OTHER, SELFPAY ==
--- NOTE | 2023-09-25 14:20 | MM_ITS ---
PROCEDURE INFORMATION: Exam: MG Bilateral Screening 3D Mammography Exam date and time: 09/25/2023 2:22 PM Age: 67 years old Clinical indication: Screening mammogram. No personal or family history of breast cancer TECHNIQUE: Imaging protocol: Bilateral Screening tomosynthesis and 2D mammography including computer-aided detection (CAD) when performed. COMPARISON: 1. MG MM DIG SCREENING MAMM BI W/CAD 09/23/2022 7:53 AM 2. MG MM DIG SCREENING MAMM BI W/CAD 09/17/2021 8:23 AM 3. MG MM DIG SCREENING MAMM BI W/CAD 09/11/2020 3:54 PM 4. MG MM DIG SCREENING MAMM BI W/CAD 09/02/2019 8:30 AM FINDINGS: MAMMOGRAPHY: Breast composition: The breast is heterogeneously dense, which may obscure small masses. Mass: Stable benign-appearing subcentimeter nodules are present in the left breast. No new or morphologically suspicious nodule has developed to suggest malignancy. Architectural distortion: No new or suspicious architectural distortion. Calcifications: No new or suspicious calcifications are present Asymmetric density: No new or suspicious asymmetric density is present Skin thickening: None. Axillary adenopathy: None. IMPRESSION: No mammographic evidence of malignancy. Recommend annual screening mammography unless otherwise clinically indicated. ASSESSMENT: BI-RADS category 2: Benign
--- NOTE | 2023-09-25 14:21 | CT_ITS ---
FINAL REPORT CLINICAL HISTORY: H/O TOBACCO USE smoker, 1 ppd x 40 years COMPARISON: 09/23/2022 FINDINGS: CT CHEST LOW DOSE SCREENING HISTORY: Screening exam for lung cancer. 67-year-old female, Current smoker, 40 pack year smoking history DOSE: CTDIvol: 2.9 mGy, DLP: 101.07 mGy*cm COMPARISON: 09/23/2022. TECHNIQUE: Axial CT without IV contrast administration using low dose protocol FINDINGS: No acute lung disease is present . No pulmonary lesions are seen suspicious for neoplasm. Mild scarring is present in the right lung. No pleural or pericardial effusion is seen . No adenopathy or mass lesion is present . IMPRESSION: Mild scarring right lung, otherwise unremarkable CT. No changes noted since 09/23/2022. LUNG RADS CATEGORY 1 RECOMMENDATION: 12 month LDCT follow up Reviewed, Interpreted and Dictated by Augusto Sood III, MD Transcribed by Samreen Freeman Authenticated and [facility]
== END ==
PROVIDERS: PCP Family Medicine; Visit Provider Family Medicine
DX: Z12.31 Encounter for screening mammogram for malignant neoplasm of breast (principal); Z87.891 Personal history of nicotine dependence
CPT/HCPCS: 71271; 77063; 77067

== ENCOUNTER 2024-07-26 08:33 | Outpatient (CLI) | payer MEDICARE, OTHER, SELFPAY ==
--- NOTE | 2024-07-26 08:37 | XR_ITS ---
FINAL REPORT CLINICAL HISTORY: Left thumb pain FINDINGS: LEFT HAND Three views demonstrate no acute fracture or dislocation. There are advanced hypertrophic changes of osteoarthritis at the basilar joint. There is a well-corticated ossific density distal to the ulnar styloid. The soft tissues are unremarkable. 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 Reviewed, Interpreted and Dictated by Miguel Calixto MD Transcribed by Melodie Phelps Authenticated and [facility]
--- NOTE | 2024-07-26 08:37 | XR_ITS ---
FINAL REPORT CLINICAL HISTORY: Right thumb pain FINDINGS: RIGHT HAND Three views demonstrate no acute fracture or dislocation. The visualized joint spaces are normally aligned. The soft tissues are unremarkable. IMPRESSION: No acute bony abnormality. Reviewed, Interpreted and Dictated by Miguel Calixto MD Transcribed by Melodie Phelps Authenticated and [facility]
== END 2024-07-26 23:59 | disposition home or self-care (01) ==
LOC: RAD 08:35
PROVIDERS: PCP Family Medicine; Visit Provider Physician Assistant
DX: M79.644 Pain in right finger(s) (principal); M79.645 Pain in left finger(s)
CPT/HCPCS: 73130

== ENCOUNTER 2024-10-10 12:35 | Outpatient (CLI) | payer MEDICARE, OTHER, SELFPAY ==
--- NOTE | 2024-10-10 12:38 | MM_ITS ---
PROCEDURE INFORMATION: Exam: MG Bilateral Screening 3D Mammography Exam date and time: 10/10/2024 12:27 PM Age: 68 years old Clinical indication: Screening examination TECHNIQUE: Imaging protocol: Bilateral Screening tomosynthesis and 2D mammography including computer-aided detection (CAD) when performed. COMPARISON: MG MM DIG SCREENING MAMM BI W/CAD 09/17/2021 8:23 AM FINDINGS: MAMMOGRAPHY: Breast composition: There are scattered areas of fibroglandular density. Mass: No new or suspicious mass. Architectural distortion: None. Calcifications: No suspicious calcifications. Asymmetric density: None. Skin thickening: None. Axillary adenopathy: None. IMPRESSION: No mammographic evidence of malignancy. Annual screening is recommended unless otherwise clinically indicated. ASSESSMENT: BI-RADS Category 1: Negative.
--- NOTE | 2024-10-10 12:39 | CT_ITS ---
FINAL REPORT TECHNIQUE: Thin section axial images were obtained from the lung apices to the upper abdomen by computed tomography. Reformatted images were obtained and reviewed. This study was performed with techniques to keep radiation doses al low as reasonably achievable (ALARA). Individualized dose reduction techniques using automated exposure control or adjustment of mA and/or kV according to the patient's size were employed. CLINICAL HISTORY: SCREENING, CURRENT SMOKER 1PPD X50 YEARS COMPARISON: 09/25/2023 FINDINGS: CHEST CT LOW DOSE CTDI vol (mGy): 2.90 DLP (mGy-cm): 103.16 There is no axillary adenopathy. There is no mediastinal or hilar mass or adenopathy. The heart is normal in size. There is no pericardial or pleural effusion. There is mild pulmonary scarring. Lung window images demonstrate no suspicious infiltrate or nodule. Limited images of the upper abdomen are unremarkable. IMPRESSION: Lung-RADS category 1. Recommend 12 month follow up low dose chest CT. Reviewed, Interpreted and Dictated by Augusto Sood III, MD Transcribed by Noy James Authenticated and . [facility]
== END 2024-10-10 23:59 | disposition home or self-care (01) ==
LOC: RAD 12:36
PROVIDERS: PCP Family Medicine; Visit Provider Family Medicine
DX: Z12.31 Encounter for screening mammogram for malignant neoplasm of breast (principal); F17.210 Nicotine dependence, cigarettes, uncomplicated
CPT/HCPCS: 71271; 77063; 77067

== ENCOUNTER 2024-10-20 07:25 | Day surgery (SDC) | payer MEDICARE, OTHER, SELFPAY ==
[2024-10-18 11:27] VITALS: BMI 44.1
[2024-10-20] MEDS: LACTATED RINGERS 1000ML 1,000 ML 25 ML IV (08:02)
[2024-10-20 08:05] VITALS: BP 118/83; PULSE 64; RESP 18; TEMP 36.1; O2SAT 97
--- NOTE | 2024-10-20 08:27 | P.PNANES_ITS ---
[facility] Disclaimer: The information contained in this section may have been updated after the patient was seen, as this information can be updated by other users. Medical History GERD (gastroesophageal reflux disease) Hypertension Dyspnea Tricuspid valve regurgitation Hypothyroidism Obesity Mitral valve regurgitation Atrial fibrillation Pulmonary hypertension HLD (hyperlipidemia) Bradycardia Edema Surgical History History of tonsillectomy History of cardiac radiofrequency ablation (RFA) H/O left breast biopsy Family History Mother Colon cancer Father Heart attack Sister Renal cancer Social History Smoking Status: Current every day smoker tobacco type: cigarettes packs per day: 1 second hand exposure: Yes alcohol intake: never substance use type: denies use current occupational status: employed Travel in the last 8 weeks: Inside the [facility] household members: none housing: house current occupation: [employer] caffeine: Yes [facility] [facility] Anesthesia Checklist Patient Identification Patient Identification: Arm Band and Verbal (Name & ) Structural Data Admitted From: Home Planned Operative Procedure/s: Colonoscopy Consent for Planned Operative Procedure(s) Verified: Yes Verified Documents: Surgical Consent NPO Status Verified Time NPO: 00:00 Additional verifications Anesthesia Reactions: No Airway Assessment Mallampati Score:: Class I C-Spine Mobility Assessed: Yes TMJ Mobility Assessed: Yes Dentition: Good Dentition Neurological Assessment Level of Consciousness: Awake Hx Seizures: No Numbness or tingling in extremities: No Anesthesia Plan Anesthesia Risk discussed: Yes Anesthesia Plan: Verified ASA Class: III Anesthesia Type: MAC
--- NOTE | 2024-10-20 08:37 | EXP.HP ---
History of Present Illness *Admission Date: 10/20/24 *Reason for visit:: Strong family history of colon cancer *History of present illness: Mrs. Jones is a 68-year-old female who is here for follow-up high risk screening/surveillance colonoscopy. The examination is deemed medically necessary for colonoscopy. The patient has been seen, interviewed and examined prior to the procedure by both myself and the anesthesia provider. [facility] Disclaimer: The information contained in this section may have been updated after the patient was seen, as this information can be updated by other users. Medical History GERD (gastroesophageal reflux disease) Hypertension Dyspnea Tricuspid valve regurgitation Hypothyroidism Obesity Mitral valve regurgitation Atrial fibrillation Pulmonary hypertension HLD (hyperlipidemia) Bradycardia Edema Surgical History History of tonsillectomy History of cardiac radiofrequency ablation (RFA) H/O left breast biopsy Family History Mother Colon cancer Father Heart attack Sister Renal cancer Social History Smoking Status: Current every day smoker tobacco type: cigarettes packs per day: 1 second hand exposure: Yes alcohol intake: never substance use type: denies use current occupational status: employed Travel in the last 8 weeks: Inside the [place] household members: none housing: house current occupation: [employer] caffeine: Yes Other Medical History Have you received the Flu Vaccine for this season: Yes Have you received the Pneumonia Vaccine: Yes Review of Systems Review of Systems Review of systems (narrative): Negative *Cardiovascular Comments: Negative *Gastrointestinal Comments: Negative *Genitourinary Comments: Negative *Musculoskeletal Comments: Negative *Neurologic Comments: Negative Meds Home Medications and Allergies Home Medications ?Medication ?Instructions ?Recorded ?Confirmed ?Type omeprazole 20 mg capsule,delayed 20 mg PO DAILY GERD 04/27/18 10/18/24 History release ropinirole 2 mg tablet (Requip) 2 mg PO HS RLS 04/27/18 10/18/24 History trazodone 50 mg tablet 50 mg PO HS SLEEP 01/01/19 10/18/24 History potassium chloride 10 mEq 10 meq PO DAILY Supplement 02/08/21 10/18/24 History tablet,extended release rivaroxaban 20 mg tablet (Xarelto) See Rx Instructions .Route 05/21/21 10/18/24 Rx .COMPLEX #90 tabs losartan 25 mg tablet 50 mg PO DAILY bp 02/21/22 10/18/24 History venlafaxine 75 mg capsule,extended 75 mg PO DAILY 08/22/22 10/18/24 History release 24 hr furosemide 40 mg tablet 40 mg PO DAILY #90 tabs 07/08/23 10/18/24 Rx spironolactone 50 mg tablet See Rx Instructions .Route 11/25/23 10/18/24 Rx .COMPLEX #90 tabs metoprolol succinate 100 mg 150 mg (1.5 x 100 mg) PO BID 90 03/17/24 10/18/24 Rx tablet,extended release 24 hr days #270 tabs varenicline 0.5 mg (11)-1 mg (42) See Rx Instructions PO PER PKG DIR 04/06/24 10/18/24 Rx tablets in a dose pack (Chantix #53 tabs Starting Month Box) varenicline 1 mg tablet (Chantix 1 mg PO BID #60 tabs 04/06/24 10/18/24 Rx Continuing Month Box) rosuvastatin 40 mg tablet See Rx Instructions .Route 08/04/24 10/18/24 Rx .COMPLEX #90 tabs levothyroxine 88 mcg capsule 88 mcg PO DAILY 10/10/24 10/18/24 History sodium sul 1.479 gram-potas ch See Rx Instructions PO PER PKG DIR 10/10/24 10/18/24 Rx 0.188 gram-magnes sul 0.225 gram colonscopy #24 tabs tablet (Sutab) New Prescriptions to Start Prescriptions: Allergies Allergy/AdvReac Type Severity Reaction Status Date / Time No Known Allergies Allergy Verified 10/18/24 11:23 Exam Data for Last 24 hours Vital signs and Labs for Last 24 Hours: Temp Pulse Resp BP Pulse Ox O2 Del Method 97.0 F L 64 18 118/83 97 Room Air 10/20/24 08:05 10/20/24 08:05 10/20/24 08:05 10/20/24 08:05 10/20/24 08:05 10/20/24 08:05 I & O for Last 24 hours: Intake & Output 10/17/24 10/18/24 10/19/24 10/20/24 23:59 23:59 23:59 23:59 Weight 265 lb *Routine HEENT Exam Head: Present normocephalic Eye: Present EOMI and PERRL ENT: Present mucous membranes moist *Routine Neck Exam Neck: Present supple *Routine Respiratory Exam Respiratory: Present CTA bilaterally *Routine Cardiovascular Exam Cardiovascular: Present RRR *Routine Abdominal Exam Abdominal: Present soft and normoactive bowel sounds; Absent tenderness *Routine Rectal Exam Rectal:: deferred *Routine Genitalia Exam Genitalia:: deferred *Routine Extremities Exam Extremities: Absent cyanosis, clubbing or edema *Routine Skin Exam Skin: Present warm; Absent rash *Routine Neurological Exam Neurological: Present alert and oriented X3 Assessment and Plan *Assessment and plan (1) Family history of colon cancer in mother: Status: Acute Category: Medical Code(s): Z80.0 - Family history of malignant neoplasm of digestive organs Plan A/P: 1. High risk screening secondary to family history is the preprocedural diagnosis. The patient will be anesthetized/sedated using MAC sedation. The patient has been seen and examined. Cardiac and lung assessment prior to the examination is stable. Proceed with planned colonoscopy
--- NOTE | 2024-10-20 08:46 | HMH.PROCNOTE ---
[facility] Procedure Note Date: 10/20/24 Time: 09:01 Procedure Note:: Colonoscopy Procedure Report: Colonoscopy with cold snare polypectomy Endoscopist: Master Quick II, MD Referring physician: Mumtaz Jimenez MD Date of Procedure: October 20, 2024 Equipment: Olympus 190 variable stiffness pediatric colonoscope Sedation: MAC sedation Indication: Mrs. Jones is a 68-year-old female who is here for high risk surveillance colonoscopy secondary to a family history of colon cancer. Her mother had colon cancer at the age of 57. She had a colonoscopy 8 years ago at which time polyps were removed. Her last colonoscopy in September 2019 revealed no polyps. She reports no abdominal pain, weight loss, change in her bowel habits or rectal bleeding. Procedure: Prior to the procedure, a history and physical exam was performed, and patient's medications and allergies were reviewed. The risks, benefits and alternatives of the sedation and procedure were discussed with the patient. All questions were answered and informed consent was obtained. The patient was brought to the procedure room. Patient identification and proposed procedure were verified by the physician and the nurse. The patient was placed in a left lateral decubitus position and the scope was passed under direct vision. Throughout the procedure, the patient's blood pressure, pulse, and oxygen saturations were monitored continuously. The colonoscopy was accomplished without difficulty. The patient tolerated the procedure well. Findings: On digital rectal examination there was normal rectal tone. There were no external hemorrhoids. The colonoscope was introduced through the anal canal to the rectum and advanced to the cecum. The ileocecal valve and appendiceal orifice were identified. The scope was advanced a short distance into the ileum which appeared grossly normal. The scope was then withdrawn into the colon. The cecum, ascending, transverse, descending and sigmoid colon were grossly normal. There was a single 3 mm hyperplastic appearing polyp in the rectosigmoid removed via cold snare polypectomy. There were no other mucosal abnormalities identified. Upon retroflexion within the rectum there were grade 1-2 internal hemorrhoids.The preparation was excellent throughout with [place] Preparation Score of 9. The cecal time was 10 minutes. Impression: 1. Diminutive hyperplastic appearing rectosigmoid polyp (3 mm) 2. Grade 1-2 internal hemorrhoids Plan: I will follow-up the polyp histology and recommend repeat surveillance colonoscopy again in 5 years based upon her strong family history.
[2024-10-20 09:12] VITALS: BP 123/79; PULSE 84; RESP 18; TEMP 36.3; O2SAT 92
[2024-10-20 09:22] VITALS: BP 111/69; PULSE 86; RESP 18; O2SAT 98
[2024-10-20 09:32] VITALS: BP 103/67; PULSE 86; RESP 18; O2SAT 99
[2024-10-20 09:42] VITALS: BP 106/60; PULSE 86; RESP 18; O2SAT 94
== END 2024-10-20 09:42 | disposition home or self-care (01) ==
PROVIDERS: PCP Family Medicine; Visit Provider Internal Medicine Gastroenterology
PROC: (CPT 45385; principal; 2024-10-20 09:00)
DX: K63.5 Polyp of colon (principal); K64.8 Other hemorrhoids; Z12.11 Encounter for screening for malignant neoplasm of colon; Z86.0100 Personal history of colon polyps, unspecified; Z80.0 Family history of malignant neoplasm of digestive organs
CPT/HCPCS: 45385; J7120

== ENCOUNTER 2025-10-18 10:15 | Outpatient (CLI) | payer MEDICARE, OTHER, SELFPAY ==
--- NOTE | 2025-10-18 10:17 | CT_ITS ---
FINAL REPORT TECHNIQUE: Thin section axial images were obtained from the lung apices to the upper abdomen by computed tomography. Reformatted images were obtained and reviewed. This study was performed with techniques to keep radiation doses al low as reasonably achievable (ALARA). Individualized dose reduction techniques using automated exposure control or adjustment of mA and/or kV according to the patient's size were employed. CLINICAL HISTORY: HX OF NICOTINE CURRENT SMOKER 1PPD X50 YEARS COMPARISON: 10/10/2024 FINDINGS: CHEST CT LOW DOSE CTDI vol (mGy): 0.90 DLP (mGy-cm): 105.51 There is no axillary adenopathy. There are calcified right paratracheal and hilar nodes, stable since the prior exam. There are no new mediastinal or hilar mass or adenopathy. The heart is normal in size. There is no pericardial or pleural effusion. There is mild scarring in the peripheral right upper lobe. Lung windows demonstrate no suspicious nodule or mass. Limited images of the upper abdomen are unremarkable. IMPRESSION: Lung-RADS category 1. Recommend 12 month follow up low dose chest CT. Reviewed, Interpreted and Dictated by Miguel Calixto MD Transcribed by Samreen Freeman Authenticated and [facility]
--- NOTE | 2025-10-18 10:19 | MM_ITS ---
PROCEDURE INFORMATION: Exam: MG Bilateral Screening 3D Mammography Exam date and time: 10/18/2025 10:18 AM Age: 69 years old Clinical indication: Screening examination TECHNIQUE: Imaging protocol: Bilateral Screening tomosynthesis and 2D mammography including computer-aided detection (CAD) when performed. COMPARISON: 1. MG MM DIG SCREENING MAMM BI W/CAD 10/10/2024 12:27 PM 2. MG MM DIG SCREENING MAMM BI W/CAD 09/25/2023 2:22 PM FINDINGS: MAMMOGRAPHY: Breast composition: There are scattered areas of fibroglandular density. Mass: None. Architectural distortion: None. Calcifications: No suspicious calcifications. Asymmetric density: None. Skin thickening: None. Axillary adenopathy: None. IMPRESSION: No mammographic evidence of malignancy. Annual screening is recommended unless otherwise clinically indicated. ASSESSMENT: BI-RADS Category 1: Negative.
--- OUTSIDE RECORDS SUMMARY | 2025-10-18 11:18 | XMS_ITS ---
Author Organization Unknown Medications Date Medication Dosage DosageUnit StartDate StopDate StopReason Active DoseQuantity DoseUnit Dispense DispenseUnit Refills NdcCode DrugCode PharmacyId IsPrescription MappedMedication Srcstatus Custom 07/11 00:00 :00 Albuterol Sulfate HFA 108 (90 Base) MCG/ACT Aerosol Solution 07/11/2025 00:00:00 1 1 1 [id number] 4 287 P Start 07/11 00:00 :00 Albuterol Sulfate HFA 108 (90 Base) MCG/ACT Aerosol Solution 06/12/2023 00:00:00 1 1 0 [id number] 4 287 P Taking 05/19 00:00 :00 Albuterol Sulfate HFA 108 (90 Base) MCG/ACT Aerosol Solution 06/12/2023 00:00:00 1 1 0 [id number] 4 287 P Taking 10/10 00:00 :00 Albuterol Sulfate HFA 108 (90 Base) MCG/ACT Aerosol Solution 06/12/2023 00:00:00 1 1 0 [id number] 4 287 P Taking 07/11 00:00 :00 Benzonatate 200 MG Capsule 07/11/2025 00:00:00 1 20 1 [id number] 3 205 P Start 07/11 00:00 :00 Cefuroxime Axetil 500 MG Tablet 07/11/2025 00:00:00 1 14 Tablet 81327 040 101 P Start 07/11 00:00 :00 Cyclobenzap rine HCl 10 MG Tablet 06/11/2022 00:00:00 0 30 1 [id number] 2 201 P Discontinu ed 05/19 00:00 :00 Cyclobenzap rine HCl 10 MG Tablet 06/11/2022 00:00:00 0 30 1 [id number] 2 201 P Not Taking 10/10 00:00 :00 Cyclobenzap rine HCl 10 MG Tablet 06/11/2022 00:00:00 0 30 1 [id number] 2 201 P Not Taking 07/11 00:00 :00 Cymbalta 60 MG Capsule Delayed Release Particles 0 90 Capsule 3 [id number] 030 Discontinu ed 05/19 00:00 :00 Cymbalta 60 MG Capsule Delayed Release Particles 0 90 Capsule 3 [id number] 030 Not Taking 10/10 00:00 :00 Cymbalta 60 MG Capsule Delayed Release Particles 0 90 Capsule 3 [id number] 030 Not Taking 07/11 00:00 :00 Lasix 40 MG Tablet 1 90 Tablet 1 831676 06 001 P Taking 05/19 00:00 :00 Lasix 40 MG Tablet 1 90 Tablet 1 025341 06 001 P Unknown Status 05/19 00:00 :00 Lasix 40 MG Tablet 1 90 Tablet 2 230248 06 001 Taking 11/21 00:00 :00 Lasix 40 MG Tablet 1 90 Tablet 2 285470 06 001 Start 11/21 00:00 :00 Lasix 40 MG Tablet 0 90 Tablet 1 254320 06 001 Stop 10/10 00:00 :00 Lasix 40 MG Tablet 06/12/2023 00:00:00 1 90 Tablet 1 98371 006 001 P Taking 07/11 00:00 :00 Levothyroxi ne Sodium 88 MCG Tablet 1 90 Tablet 1 48294832 710 P Taking 05/19 00:00 :00 Levothyroxi ne Sodium 88 MCG Tablet 1 90 Tablet 1 40336439 710 P Unknown Status 05/19 00:00 :00 Levothyroxi ne Sodium 88 MCG Tablet 1 90 Tablet 1 45436464 710 P Taking 12/27 00:00 :00 Levothyroxi ne Sodium 88 MCG Tablet 1 90 Tablet 1 79120185 710 P Unknown Status 11/02 00:00 :00 Levothyroxi ne Sodium 88 MCG Tablet 1 90 Tablet 1 30735939 710 Start 11/02 00:00 :00 Levothyroxi ne Sodium 88 MCG Tablet 0 90 Tablet 1 21236369 710 Stop 10/10 00:00 :00 Levothyroxi ne Sodium 88 MCG Tablet 05/25/2024 00:00:00 1 90 Tablet 1 19969 180 710 P Taking 07/11 00:00 :00 Losartan Potassium 50 mg Tablet 1 90 Tablet 1 44496159 310 P Taking 05/19 00:00 :00 Losartan Potassium 50 mg Tablet 1 90 Tablet 1 26986176 310 P Unknown Status 05/19 00:00 :00 Losartan Potassium 50 mg Tablet 1 90 Tablet 1 64282022 310 P Taking 10/10 00:00 :00 Losartan Potassium 50 mg Tablet 1 90 Tablet 1 26088595 310 P Taking 07/11 00:00 :00 Medrol 4 MG Tablet Therapy Pack 06/11/2022 00:00:00 0 1 0 4872313 5 604 P Discontinu ed 05/19 00:00 :00 Medrol 4 MG Tablet Therapy Pack 06/11/2022 00:00:00 0 1 0 2591534 5 604 P Not Taking 10/10 00:00 :00 Medrol 4 MG Tablet Therapy Pack 06/11/2022 00:00:00 0 1 0 6021384 5 604 P Not Taking 07/11 00:00 :00 Omeprazole 20 MG Capsule Delayed Release 1 90 1 04659598 801 P Taking 05/19 00:00 :00 Omeprazole 20 MG Capsule Delayed Release 1 90 1 13194275 801 P Unknown Status 05/19 00:00 :00 Omeprazole 20 MG Capsule Delayed Release 1 90 1 40243957 801 P Taking 03/24 00:00 :00 Omeprazole 20 MG Capsule Delayed Release 1 90 1 34612200 801 P Unknown Status 10/10 00:00 :00 Omeprazole 20 MG Capsule Delayed Release 1 90 1 [id number] 801 P Taking 07/11 00:00 :00 Potassium Chloride ER 10 MEQ Capsule Extended Release 1 180 1 98860094 201 P Taking 05/19 00:00 :00 Potassium Chloride ER 10 MEQ Capsule Extended Release 1 180 1 00613647 201 P Unknown Status 05/19 00:00 :00 Potassium Chloride ER 10 MEQ Capsule Extended Release 1 180 1 [id number] 201 P Taking 12/27 00:00 :00 Potassium Chloride ER 10 MEQ Capsule Extended Release 1 180 1 16921384 201 P Unknown Status 10/10 00:00 :00 Potassium Chloride ER 10 MEQ Capsule Extended Release 1 180 1 92246362 201 Taking 07/11 00:00 :00 rOPINIRole HCl 2 MG Tablet 1 90 1 9632402 7 601 P Taking 05/19 00:00 :00 rOPINIRole HCl 2 MG Tablet 1 90 1 5792627 7 601 P Unknown Status 05/19 00:00 :00 rOPINIRole HCl 2 MG Tablet 1 90 1 [id number] 7 601 P Taking 12/27 00:00 :00 rOPINIRole HCl 2 MG Tablet 1 90 1 8320513 7 601 P Unknown Status 10/10 00:00 :00 rOPINIRole HCl 2 MG Tablet 1 90 1 3054682 7 601 P Taking 07/11 00:00 :00 Rosuvastati n Calcium 40 MG Tablet 03/02/2025 00:00:00 1 90 Tablet 1 65020 018 205 P Taking 05/19 00:00 :00 Rosuvastati n Calcium 40 MG Tablet 03/02/2025 00:00:00 1 90 Tablet 1 44691 018 205 P Unknown Status 05/19 00:00 :00 Rosuvastati n Calcium 40 MG Tablet 03/02/2025 00:00:00 1 90 Tablet 1 09918 018 205 P Taking 03/02 00:00 :00 Rosuvastati n Calcium 40 MG Tablet 03/02/2025 00:00:00 1 90 Tablet 1 84176 018 205 P Start 07/11 00:00 :00 Spironolact one 50 MG Tablet 1 90 Tablet 1 003 13404 301 P Taking 05/19 00:00 :00 Spironolact one 50 MG Tablet 1 90 Tablet 1 003 59939 301 P Unknown Status 05/19 00:00 :00 Spironolact one 50 MG Tablet 1 90 Tablet 1 003 05463 301 P Taking 03/30 00:00 :00 Spironolact one 50 MG Tablet 1 90 Tablet 1 003 28164 301 P Unknown Status 11/15 00:00 :00 Spironolact one 50 MG Tablet 1 90 Tablet 1 003 48942 301 Start 11/15 00:00 :00 Spironolact one 50 MG Tablet 0 90 Tablet 1 003 33525 301 Stop 10/10 00:00 :00 Spironolact one 50 MG Tablet 1 90 Tablet 1 003 84856 301 P Taking 07/11 00:00 :00 Toprol XL 100 MG Tablet Extended Release 24 Hour 1 180 Tablet 1 62217628 860 P Taking 07/11 00:00 :00 Toprol XL 25 MG Tablet Extended Release 24 Hour 0 77780533 230 Discontinu ed 05/19 00:00 :00 Toprol XL 100 MG Tablet Extended Release 24 Hour 1 180 Tablet 1 08800031 860 P Unknown Status 05/19 00:00 :00 Toprol XL 100 MG Tablet Extended Release 24 Hour 1 180 Tablet 2 24452607 860 Taking 05/19 00:00 :00 Toprol XL 25 MG Tablet Extended Release 24 Hour 0 42622164 230 Not Taking 11/21 00:00 :00 Toprol XL 100 MG Tablet Extended Release 24 Hour 1 180 Tablet 2 57059008 860 Start 11/21 00:00 :00 Toprol XL 100 MG Tablet Extended Release 24 Hour 0 180 Tablet 1 78561058 860 Stop 10/10 00:00 :00 Toprol XL 100 MG Tablet Extended Release 24 Hour 1 180 Tablet 1 41190186 860 P Taking 10/10 00:00 :00 Toprol XL 25 MG Tablet Extended Release 24 Hour 0 [id number] 230 Not Taking 07/11 00:00 :00 traZODone HCl 50 MG Tablet 1 90 1 9323297 6 861 P Taking 05/19 00:00 :00 traZODone HCl 50 MG Tablet 1 90 1 [id number] 6 861 P Unknown Status 05/19 00:00 :00 traZODone HCl 50 MG Tablet 1 90 1 9525941 6 861 Taking 11/15 00:00 :00 traZODone HCl 50 MG Tablet 1 90 1 [id number] 6 861 Start 11/15 00:00 :00 traZODone HCl 50 MG Tablet 0 90 1 [id number] 6 861 Stop 10/10 00:00 :00 traZODone HCl 50 MG Tablet 1 90 1 8246981 6 861 P Taking 07/11 00:00 :00 Venlafaxine HCl ER 75 MG Capsule Extended Release 24 Hour 1 90 Capsule 1 41271685 505 P Taking 05/19 00:00 :00 Venlafaxine HCl ER 75 MG Capsule Extended Release 24 Hour 1 90 Capsule 1 44452044 505 P Unknown Status 05/19 00:00 :00 Venlafaxine HCl ER 75 MG Capsule Extended Release 24 Hour 1 90 Capsule 1 67527708 505 P Taking 12/27 00:00 :00 Venlafaxine HCl ER 75 MG Capsule Extended Release 24 Hour 1 90 Capsule 1 22992368 505 P Unknown Status 10/10 00:00 :00 Venlafaxine HCl ER 75 MG Capsule Extended Release 24 Hour 1 90 Capsule 1 16799960 505 P Taking 07/11 00:00 :00 Xarelto 20 MG Tablet 1 82908229 900 P Taking 05/19 00:00 :00 Xarelto 20 MG Tablet 1 88656172 900 P Unknown Status 05/19 00:00 :00 Xarelto 20 MG Tablet 1 30 3 72589360 900 Taking 10/10 00:00 :00 Xarelto 20 MG Tablet 1 30 3 45715613 900 Taking
--- OUTSIDE RECORDS SUMMARY | 2025-10-18 11:18 | XMS_ITS | Encounter Summary ---
Author Organization [facility] [place] [address] Care Team Providers Care Senior Mobile Application Developer Name Role Phone BarbaraSharron rodriguez Primary Care Provider [phone] Bj Awan MD Unavailable [phone] Pati Talamantes APRN Unavailable [phone] Encounter Details Date Type Department Care Team (Late st Contact Info) Description 06/28/2015 Orders Only [facility] [address] [facility] [address] [place] [address] Bj Awan MD [address] [place] [address] Social History Tobacco Use Types Packs/Day Years Used Date Smoking Tobacco: Every Day Cigarettes 0.5 40 Started: 05/22/1996 Smokeless Tobacco: Never Alcohol Use Standard Drinks/Week Comments Yes 0 (1 standard drink = 0.6 oz pur e alcohol) occasionally Comments No Sex and Gender Information Value Date Recorded Sex Assigned at Not on file Legal Sex Female 3:01 PM EDT Gender Identity Not on file Sexual Orientation Not on file documented as of this encounter Functional Status * Cognitive and Functional Status Question Answer Date of Assessment Author Is the person deaf or does he/she have serious difficulty hearing? No 06/29/2015 10:56 AM Ivis Johns RN Is the person blind or does he/she have serious difficulty seeing even when wearing glasses? No 06/29/2015 10:56 AM Ivis Johns RN Does this person have seriou s difficulty walking or climbing stairs? No 06/29/2015 10:56 AM EDT Ivis Jones RN Does this person have difficulty dressing or bathing? No 06/29/2015 10:56 AM EDT Ivis Jones RN documented as of this encounter Mental Status * Cognitive and Functional Status Question Answer Entry Date Author Because of a physical, menta l or emotional condition, does this person have difficulty doing errands alone such as visiting a doctor's office or shopping? No 06/29/2015 10:56 AM EDT Ivis Jones RN Because of a physical, menta l or emotional condition, does this person have serious difficulty concentrating, remembering or making decisions? No 06/29/2015 10:56 AM EDT Ivis Jones RN documented in this encounter Plan of Treatment Not on file documented as of this encounter Procedures Procedure Name Priority Date/Time Associated Diagnosis Comments EP LAB RECORDINGS Routine 06/28/2015 12:04 PM EDT documented in this encounter Results * EP LAB RECORDINGS (06/28/2015 12:04 PM EDT) 06/28/2015 12:0 4 PM EDT Bj Awan MD CARDIAC CATH ORDERABLES Final Result Performing Organization Address City/State/[facility] Co de Phone Number [facility] [address] [place] [address] documented in this encounter Visit Diagnoses Not on filedocumented in this encounter Care Teams Senior Mobile Application Developer Relationship Specialty Start Date End Date Sharron Jimenez [address] [place] [address] [address] [facility] [place] [address] PCP - General Family Medicine 05/17/15 Bj Awan MD [address] [place] [address] [place] [address] Consulting Physician Internal Medicine - Clinical Cardiac Electrophysiology 12/19/16 Pati Talamantes APRN NPI: [id number] [place] [address] [place] [address] Nurse Practitioner 03/13/17 documented as of this encounter
--- OUTSIDE RECORDS SUMMARY | 2025-10-18 11:19 | XMS_ITS | Clinical Summary ---
Author Organization [facility] [place] Address [address] [facility] [address] [place] [address] Phone Care Team Providers Care Platinumsmith Name Role Phone Sharron Jimenez Primary Care Provider [phone] Bj Awan MD Unavailable [phone] Pati Talamantes APRN Unavailable [phone] Allergies No known active allergies Medications DULoxetine (CYMBALTA) 60 mg Oral Capsule, Delayed Release(E.C.) Take 60 mg by mouth daily. Active levothyroxine (SYNTHROID) 100 mcg Oral Tablet Take 100 mcg by mouth daily. Active losartan (COZAAR) 50 mg Oral Tablet Take 50 mg by mouth daily. Active roPINIRole (REQUIP) 2 mg Oral Tablet Take 2 mg by mouth nightly. Active traZODone (DESYREL) 50 mg Oral Tablet Take 50 mg by mouth nightly. Active omeprazole (PRILOSEC) 20 mg Oral Capsule, Delayed Release(E.C.) Take twice daily for 1 month then one daily 60 Cap 02/19/2017 Active metoprolol succinate (TOPROL-XL) 50 mg Oral Tablet Sustained Release 24 hr Take 25 mg by mouth nightly. Active hydroCHLOROthiaz tamara (HYDRODIURIL) 25 mg Oral Tablet Take 25 mg by mouth daily. Active spironolactone (ALDACTONE) 25 mg Oral Tablet Take 25 mg by mouth daily. Active potassium chloride (MICRO-K) 10 mEq Oral Capsule, Sustained Release Take 10 mEq by mouth 2 times daily. Active amiodarone (PACERONE) 200 mg Oral Tablet Take 1 Tab by mouth daily. 30 Tab 1 04/02/2017 Active rivaroxaban (XARELTO) 20 mg Oral Tablet Take 1 Tab by mouth daily. 30 Tab 1 04/02/2017 Active Active Problems Problem Noted Date Diagnosed Date S/P ablation of atrial fibrillation 02/19/2017 Overview (02/19/2017): On 02/18/[address] Awan - EPS/PVAI, Linear ablation for atrial fibrillation along the left atrial roof, Linear ablation for atrial fibrillation along the mitral isthmus, CFAE ablation base of SONIA and floor of LA, Cavotricuspid Isthmus ablation Hypothyroidism Hypertension Atrial fibrillation Overview (07/27/2015): EPS, 3D Mapping, AF Ablation 06/28/15-Dr. Awan Bradycardia Depression History of gastroesophageal reflux (GERD) Tobacco dependency Immunizations Immunization Administration Dates Next Due Influenza Patient Reported 12/31/2016 Surgical History Surgery Date Site/Laterality Comments BREAST BIOPSY Left TONSILLECTOMY DENTAL SURGERY COLONOSCOPY UPPER GASTROINTESTINAL ENDOSCOPY CARDIAC CATHETERIZATION CARDIOVERSION X2 ABLATION OF DYSRHYTHMIC FOCUS 06/28/2015 EPS, 3D Mapping, AF Ablation-Dr. Awan ABLATION OF DYSRHYTHMIC FOCUS 02/18/2017 EPS/PVAI, CTI line ablation by Dr. Awan Medical History Medical History Date Comments Hypothyroidism Hypertension Bradycardia Depression History of gastroesophageal reflux (GERD) Tobacco dependency Heart murmur Neuromuscular disorder (HCC) RLS Post-operative nausea and vomiting Motion sickness Persistent atrial fibrillation (HCC) cardioversion X 2 (2012 & 2013) Unspecified sleep apnea CPAP Family History Medical History Relation Name Comments Coronary Art Dis Father Heart Attack Father age 57 Stroke Maternal Grandfather Heart Failure Maternal Grandmother Arrhythmia Mother afib Colon Cancer Mother Hypertension Mother Cancer Sister High Blood Pressure Sister Kidney Cancer Sister Relation Name Status Comments Father Maternal Grandfather Maternal Grandmother Mother Alive Sister Social History Tobacco Use Types Packs/Day Years Used Date Smoking Tobacco: Every Day Cigarettes 0.5 40 Started: 05/22/1996 Smokeless Tobacco: Never Tobacco Cessation:Ready to Q uit: No; Counseling Given: Yes Alcohol Use Standard Drinks/Week Comments Yes 0 (1 standard drink = 0.6 oz pur e alcohol) occasionally Comments No Sex and Gender Information Value Date Recorded Sex Assigned at Not on file Legal Sex Female 3:01 PM EDT Gender Identity Not on file Sexual Orientation Not on file Last Filed Vital Signs Vital Sign Reading Time Taken Comments Blood Pressure 140/88 04/02/2017 3:34 PM EDT Pulse 81 04/02/2017 3:34 PM EDT Temperature 36.7 C (98.1 F) 02/19/2017 5:35 AM EDT Respiratory Rate 14 02/19/2017 5:35 AM EDT Oxygen Saturation 93% 04/02/2017 3:34 PM EDT Inhaled Oxygen Concentration - - Weight 107.4 kg (236 lb 12.8 oz) 04/02/2017 3:34 PM EDT Height 165.1 cm (5' 5 ) 04/02/2017 3:34 PM EDT Body Mass Index 39.41 04/02/2017 3:34 PM EDT Plan of Treatment Health Maintenance Due Date Last Done Comments Hepatitis C Screening 1972 DTaP/TDaP/Td (1 - Tdap) 1973 Cologuard 1999 FIT 1999 Sigmoidoscopy 1999 Virtual Colonography 1999 Low Dose Lung Cancer Screening 2004 Pneumococcal Vaccine 50+ (1 of 1 - PCV) 2004 Zoster (1 of 2) 2004 Annual Wellness Exam 08/10/2016 08/10/2015 (Postponed) Breast Cancer Screening 08/10/2017 08/10/20 15 (Postponed) Bone Density Screening 2019 COVID-19 Vaccine (1 - 2024-2 6 season) 2025 Influenza Vaccine (#1) 2025 12/31/2016 Colon Cancer Screening 08/10/2025 Colonoscopy 08/10/2025 08/10/2015 (Postponed) Hepatitis B Vaccine Aged Out No longe r eligible based on patient's age to complete this topic Meningococcal B Vaccine Aged Out No l onger eligible based on patient's age to complete this topic Insurance [facility] [id number] Advance Directives For more information, please contact: [phone] * Full Code (Latest Code Status on File) Date Activated Date Inactivated Comments 02/19/2017 9:01 AM 02/19/2017 4:54 PM Care Teams Platinumsmith Relationship Specialty Start Date End Date Sharron Jimenez [facility] [address] [place] [phone] PCP - General Family Medicine 05/17/15 Bj Awan MD [address] [place] [address] [place] [address] Consulting Physician Internal Medicine - Clinical Cardiac Electrophysiology 12/19/16 Pati Talamantes APRN [address] [place] [address] [place] [address] Nurse Practitioner 03/13/17
--- OUTSIDE RECORDS SUMMARY | 2025-10-18 11:21 | XMS_ITS | Encounter Summary ---
Author Organization [place] [address] Care Team Providers Care Coal Cutting Machine Operator Name Role Phone BarbaraSharron rodriguez Primary Care Provider [phone] Bj Awan MD Unavailable [phone] Pati Talamantes APRN Unavailable [phone] Encounter Details Date Type Department Care Team (Late st Contact Info) Description 02/18/2017 Orders Only [facility] [address] [facility] [address] [place] [address] Bj Awan MD [address] [place] [address] Social History Tobacco Use Types [...] as of this encounter Functional Status * Is the person deaf or does he/she have serious difficulty hearing? Answer Date of Assessment Author No 06/29/2015 10:56 AM Cammy Johns RN * Is the person blind or does he/she have serious difficulty seeing even when wearing glasses? Answer Date of Assessment Author No 06/29/2015 10:56 AM Cammy Johns RN * Does this person have serious difficulty walking or climbing stairs? Answer Date of Assessment Author No 06/29/2015 10:56 AM EDT Cammy Jones RN * Does this person have difficulty dressing or bathing? Answer Date of Assessment Author No 06/29/2015 10:56 AM EDT Cammy Jones RN * Because of a physical, mental or emotional condition, does this person have difficulty doing errands alone such as visiting a doctor's office or shopping? Answer Date of Assessment Author No 06/29/2015 10:56 AM EDT Cammy Jones RN documented as of this encounter Mental Status * Because of a physical, mental or emotional condition, does this person have serious difficulty concentrating, remembering or making decisions? Answer Entry Date Author No 06/29/2015 10:56 AM EDT Cammy Jones RN documented in this encounter Plan of Treatment Not on file documented as of this encounter Procedures Procedure Name Priority Date/Time Associated Diagnosis Comments EP LAB RECORDINGS Routine 02/18/2017 9:56 AM EDT documented in this encounter Results * EP LAB RECORDINGS (02/18/2017 9:56 AM EDT) 02/18/2017 9:56 AM EDT Bj Awan MD CARDIAC CATH ORDERABLES Final Result Performing Organization Address City/State/[facility] Co de Phone Number [facility] [address] [place] [address] documented in this encounter Visit Diagnoses Not on filedocumented in this encounter Care Teams Coal Cutting Machine Operator Relationship Specialty Start Date End Date Sharron Jimenez [address] [place] [address] [address] [place] [address] PCP - General Family Medicine 05/17/15 Bj Awan MD [address] [place] [address] [place] [address] Consulting Physician Internal Medicine - Clinical Cardiac Electrophysiology 12/19/16 Pati Talamantes APRN NPI: [id number] [place] [address] [place] [address] Nurse Practitioner 03/13/17 documented as of this encounter
== END 2025-10-18 23:59 | disposition home or self-care (01) ==
LOC: RAD 10:16
PROVIDERS: PCP Family Medicine; Visit Provider Family Medicine
DX: Z12.31 Encounter for screening mammogram for malignant neoplasm of breast (principal); R92.323 Mammographic fibroglandular density, bilateral breasts; Z12.2 Encounter for screening for malignant neoplasm of respiratory organs; F17.210 Nicotine dependence, cigarettes, uncomplicated; J98.4 Other disorders of lung; R91.8 Other nonspecific abnormal finding of lung field
CPT/HCPCS: 71271; 77063; 77067